=== PATIENT | male | born 1970 | race Caucasian/White ===

== ENCOUNTER 2016-11-30 00:27 | Emergency (ER) | payer SELFPAY ==
[~2016-11-30] VITALS: Ht 175.3 cm; Wt 118.0 kg
[2016-11-30 00:29] VITALS: TEMP 36.3; Ht 175.3 cm; Wt 118.0 kg
[2016-11-30] MEDS ORDERED: IBUPROFEN 600 MG TAB PO STA (00:40)
[2016-11-30] MEDS ORDERED: NAPR250T2 PO (01:00)
[2016-11-30] MEDS ORDERED: PRLSR20 PO (01:01)
[2016-11-30 01:07] VITALS: BP 170/91; PULSE 83; O2SAT 96
--- NOTE | 2016-11-30 03:06 | EMERGENCY ROOM VISIT NOTE ---
ED Visit Note First contact with patient: 00:32 CHIEF COMPLAINT: knee pain HISTORY OF PRESENT ILLNESS: This 46 yo patient presents to the emergency department after sustaining an injury to the right knee when he stepped down off the bus who works for the [employer] and is a work-related injury. The patient denies any other injuries besides their knee. The patient denies swelling or bruising. There is pain medial aspect. They rate the pain as throbbing and 5/10. The patient states they are able to walk on it. No numbness or tingling. No previous injuries to this knee. No ankle, foot or hip pain. REVIEW OF SYSTEMS: A 6 system review of systems was completed with positives and pertinent negatives listed in the HPI. ALLERGIES: none MEDICATIONS: none PMH: none SOCIAL HISTORY: no drug use PHYSICAL EXAM: Vital Signs: Reviewed Nurse's notes, vital signs hypertensive. GENERAL: pleasant male, no acute distress, but appears in pain, well-developed , well-nourished. MENTAL STATUS: Alert, oriented to person place and time, and cooperative. MUSCULOSKELETAL: The right knee is not swollen. There is no ecchymosis. There is no joint effusion present. The patient is tender medial aspect. There is no joint line tenderness. The patella not subluxate. Range of motion is intact but painful. Strength of the quads and hamstrings is 5/5. Thien's is negative. Ash's and Anterior Drawer tests are negative. There is no laxity with varus and valgus stressing. The foot and toes are warm and well-perfused. Dorsalis pedis pulse 2+. Sensation to pain and light touch is intact. Capillary refill less than 2 seconds. EMERGENCY DEPARTMENT COURSE: I examined the patient. X-rays of the right knee were reviewed by myself and attending no fracture . The patient was advised to use his knee immobilizer that he has at home from prior knee injury and follow- up with Worker's Compensation in the next few days. The patient was instructed on the use of crutches. He was advised to return to the ER immediately for severe pain, numbness, tingling, worsening signs or symptoms or as needed. The patient was discharged home in good condition. DIAGNOSIS: Right knee injury, MCL sprain, work-related DISCHARGE INSTRUCTIONS: as below Current/Historical Medications Scheduled Omeprazole (Prilosec), 20 MG PO DAILY Scheduled PRN Naproxen (Naprosyn), Unknown Dose PO DIRECTED PRN for inflammation Allergies Coded Allergies: No Known Allergies (Unverified , 11/30/16) Vital Signs Date Time Temp Pulse Resp B/P Pulse Ox O2 Delivery O2 Flow Rate FiO2 11/30/16 01:07 83 16 170/91 96 Room Air 11/30/16 00:29 36.3 83 18 188/97 97 Room Air Medications Administered Medications (Trade) Dose Ordered Sig/Shruthi Route Start Time Stop Time Status Last Admin Dose Admin Ibuprofen (Motrin Tab) 600 mg NOW STAT PO 11/30/16 00:40 11/30/16 00:41 DC 11/30/16 00:47 600 MG Departure Information Impression Primary Impression: Right knee sprain Additional Impression: Work related injury Dispostion Home / Self-Care Condition GOOD Forms HOME CARE DOCUMENTATION FORM, Work Instructions, Return To Work: 2 days IMPORTANT VISIT INFORMATION Patient Instructions [facility], ED Sprain Knee Additional Instructions Ibuprofen(Motrin, Advil) may be used for fever or pain. Use 600mg every six hours as needed. Take with food. Avoid using more than 2400mg in a 24 hour period. Do not use 2400mg per day for more than three consecutive days without physician direction. Prolonged inappropriate use can lead to stomach upset or ulcers. This medication can be taken if you need to drive, work, or perform activities which may be dangerous when taking narcotic pain medication. (AND/OR) Acetaminophen(Tylenol) may be used for fever or pain. Use 1000mg every six hours as needed. Avoid using more than 3000mg in a 24 hour period. This medication can be taken if you need to drive, work, or perform activities which may be dangerous when taking narcotic pain medication. Ice compresses for 20 minutes at a time four times daily for 2-3 days. Use the crutches as instructed. Rest and elevate your injury. Wear knee immobilizer when up and about. Do not have it so tight that you cannot feel your foot. Continue current medications. Return to the ER immediately for any numbness, tingling, severe pain, extreme swelling in the extremity or as needed. Call your occupational health/Worker's Comp. tomorrow to arrange follow up for your injury. Work Instructions Return To Work: 2 days
--- NOTE | 2016-11-30 06:54 | DIAGNOSTIC IMAGING REPORT ---
RIGHT KNEE 3 VIEWS CLINICAL HISTORY: Right knee pain status post trauma COMPARISON: None. DISCUSSION: There is minor joint space narrowing. There are no fractures. There are no erosive or destructive changes. IMPRESSION: No fractures or dislocations identified. Electronically signed by: Levar Olivarez M.D. 11/30/2016 6:52 AM Dictated Date/Time: 11/30/2016 6:51 AM
== END 2016-11-30 01:20 | disposition home or self-care (01) ==
LOC: C.EDB 00:28 → C.EDA 01:20
DX: S83.411A Sprain of medial collateral ligament of right knee, initial encounter (principal); X58.XXXA Exposure to other specified factors, initial encounter; Y99.0 Civilian activity done for income or pay

== ENCOUNTER 2017-01-04 02:13 | Emergency (ER) | payer SELFPAY ==
[~2017-01-04] VITALS: Ht 175.3 cm; Wt 124.2 kg
[~2017-01-04 02:13] MED LIST: NAPR250T2 PO; PRLSR20 PO
[2017-01-04 02:21] VITALS: TEMP 36.6; Ht 175.3 cm; Wt 124.2 kg
[2017-01-04] MEDS ORDERED: ACET325T96 PO (02:36)
[2017-01-04] MEDS ORDERED: IBUPROFEN 600 MG TAB PO STA (02:43)
[2017-01-04] MEDS ORDERED: OXYCODONE IR HOME PACK PO ONE (02:45)
[2017-01-04 03:24] VITALS: BP 146/92; PULSE 80; O2SAT 97
--- NOTE | 2017-01-04 06:19 | EMERGENCY ROOM VISIT NOTE ---
History Report prepared by Berthaibgeo: Melissa Gay Under the Supervision of: Dr. Byron Omalley M.D. First contact with patient: 02:30 Chief Complaint: KNEEPAIN Stated Complaint: RIGHT KNEE PAIN FROM PREVIOUS WORK INJURY History of Present Illness The patient is a 46 year old male who presents to the Emergency Room with complaints of worsened right knee pain that began last night. His pain is worse with movement of his right leg. The patient states that he was walking at work and suddenly developed sharp pain in his right knee. He did not fall at that time. He took Tylenol about 8 hours ago. The patient has a history of right knee problems that began this past August. His problems initially started with a fall at work when he slipped and fell directly on his right knee. He had x- rays and an MRI at that time which were unrevealing. He developed right knee pain again this past November but denies a fall at that time. He was seen in the ER and was diagnosed with a knee sprain after an x-ray was unrevealing. Recently , he has noticed improvement in his pain and swelling until he reinjured it last evening. He has followed up with Dr. Rollins for his knee pain. He wears a knee brace. Pt denies LOC, headache, fevers, chills, diaphoresis, visual changes , neck pain, chest pain, breathing difficulties, nausea, vomiting, abdominal pain, back pain, melena, hematochezia, urinary symptoms, numbness, weakness, lymphadenopathy, rash, or other complaints. Source of History: patient Onset: last night Position: knee (right) Timing: worsening Modifying Factors (Worsening): movement Review of Systems See HPI for pertinent positives and negatives. A total of ten systems were reviewed and were otherwise negative. Family History Diabetes mellitus Gallbladder disease Heart disease Hypertension Social History Smoking Status: Current Every Day Smoker Alcohol Use: none Marital Status: Housing Status: lives with significant other Occupation Status: employed Current/Historical Medications Scheduled Omeprazole (Prilosec), 20 MG PO DAILY Scheduled PRN Acetaminophen Tab (Tylenol), 650 MG PO DIRECTED PRN for Pain or Fever Allergies Coded Allergies: No Known Allergies (Unverified , 01/04/17) Physical Exam Vital Signs Date Time Temp Pulse Resp B/P Pulse Ox O2 Delivery O2 Flow Rate FiO2 01/04/17 03:24 80 18 146/92 97 01/04/17 02:21 36.6 86 20 151/95 96 Room Air Physical Exam GENERAL: Awake, alert, well-appearing, in no distress HENT: Normocephalic, atraumatic. Oropharynx unremarkable. EYES: Normal conjunctiva. Sclera non-icteric. NECK: Supple. No nuchal rigidity. FROM. No JVD. RESPIRATORY: Clear to auscultation. CARDIAC: Regular rate, normal rhythm. Extremities warm and well perfused. Pulses equal. ABDOMEN: Soft, non-distended. No tenderness to palpation. No rebound or guarding. No masses. RECTAL: Deferred. MUSCULOSKELETAL: Chest examination reveals no tenderness. The back is symmetrical on inspection without obvious abnormality. There is no CVA tenderness to palpation. No joint edema. LOWER EXTREMITIES: Right leg quadriceps function is intact. Tenderness in the anterior aspect of the right knee inferior to the patella. Range of motion is well preserved. Negative Ash's. No laxity to varus or valgus strain. Some mild joint line tenderness. Minimal amount of anterior swelling . Negative Homans sign. NEURO: Normal sensorium. No sensory or motor deficits noted. SKIN: No rash or jaundice noted. Medical Decision & Procedures ER Provider Diagnostic Interpretation: Right knee x-ray per my interpretation: No fracture or dislocation. Mild joint effusion. Medications Administered Medications (Trade) Dose Ordered Sig/Shruthi Route Start Time Stop Time Status Last Admin Dose Admin Oxycodone HCl (Roxicodone Immediate Rel 5MG Home Pack) 1 homepack UD ONCE PO 01/04/17 02:45 01/04/17 02:46 DC 01/04/17 02:52 1 HOMEPACK Ibuprofen (Motrin Tab) 600 mg NOW STAT PO 01/04/17 02:43 01/04/17 02:45 DC 01/04/17 02:52 600 MG ED Course 0240: The patient was evaluated in room B2. A complete history and physical exam was performed. 0243: Ordered Ibuprofen 600 mg PO, Oxycodone HCl 1 homepack PO. 0320: I reevaluated the patient. Discussed results and discharge instructions: He verbalized understanding and agreement. The patient is ready for discharge. Medical Decision Prior records reviewed and summarized above. Triage Nursing notes reviewed and agree them. The patient's history was concerning for isolated knee pain Differential diagnosis: Etiologies such as sprain, strain, arthritis, fracture, dislocation, neurovascular compromise, and Torres's cyst, ligamentous injury, soft tissue injury, as well as others were entertained. Physical examination: Consistent with an isolated right knee injury. ER treatment provided: The patient needs to drive himself home. He was given oral Motrin. He has a brace. On reassessment the patient felt better. Diagnostics interpreted by me: Imaging studies: Xrays as above. The patient has been dealing with knee issues since last fall. He has followed up with orthopedics after his last Emergency Room visit. I suspect he strained the knee by his history and physical examination. The patient notes moderate to significant pain with attempted ambulation. I asked for him to follow up closely with his orthopedist, Dr. Rollins. The patient was given a work note for today and tomorrow. The patient was also given one home pack of oxycodone to use for breakthrough pain if Tylenol and ibuprofen effective.I gave my usual and customary discussion regarding this issue. By the evaluation outlined above emergent etiologies such as fracture, dislocation, neurovascular compromise, compartment syndrome, infections, DVT as well as others were deemed relatively unlikely. The patient was informed about the findings as listed above. All questions were answered and he was pleased with the treatment. Return instructions were outlined and the patient was discharged in stable condition. Prescription management: Oxy IR Referral: [facility]. The chart was completed utilizing [employer] Speech voice recognition software. Grammatical errors, random word insertions, pronoun errors, and incomplete sentences are an occasional consequence of this system due to software limitations, ambient noise, and hardware issues. Any formal questions or concerns about the content, text, or information contained within the body of this dictation should be directly addressed to the physician for clarification. [place] Drug Monitoring Program Search Results: patient reviewed within database, no issues identified Impression Primary Impression: Right knee pain Scribe Attestation The scribe's documentation has been prepared under my direction and personally reviewed by me in its entirety. I confirm that the note above accurately reflects all work, treatment, procedures, and medical decision making performed by me. Departure Information Dispostion Home / Self-Care Referrals Dorian Avila D.O. (PCP) Patient Instructions [facility] Additional Instructions ORTHOPEDIC INSTRUCTIONS: Oxycodone (OxyIR) 5mg: Take 1 pill every four hours for breakthrough pain. Avoid alcohol, operating machinery or dangerous equipment, working on ladders or roofs, DRIVING, or situations where being under the influence may be dangerous. It is recommended to use an [id number] stool softener such as Colace, 100mg twice daily while taking this medication to avoid constipation. Ibuprofen(Motrin, Advil) may be used for fever or pain. Use 600mg every six hours as needed. Take with food. Avoid using more than 2400mg in a 24 hour period. Do not use 2400mg per day for more than three consecutive days without physician direction. Prolonged inappropriate use can lead to stomach upset or ulcers. (AND/OR) Acetaminophen(Tylenol) may be used for fever or pain. Use 1000mg every six hours as needed. Avoid using more than 4000mg in a 24 hour period. Ice compresses for 20 minutes at a time four times daily for 2-3 days. Use the knee brace as instructed. Rest and elevate your injury. Return to the ER immediately for any numbness, tingling, severe pain, extreme swelling in the extremity or as needed. Call [facility], [phone], later today to arrange follow up for your injury.
--- NOTE | 2017-01-04 06:41 | DIAGNOSTIC IMAGING REPORT ---
RIGHT KNEE 1 OR 2 VIEWS ROUTINE CLINICAL HISTORY: right knee pain Right pain COMPARISON: None. DISCUSSION: The bones and joint spaces appear intact. There is no evidence of fracture, dislocation or bony disease. There is no evidence for soft tissue swelling. IMPRESSION: Negative study. Electronically signed by: Blanco Jimenez M.D. 01/04/2017 6:39 AM Dictated Date/Time: 01/04/2017 6:39 AM
== END 2017-01-04 03:27 | disposition home or self-care (01) ==
LOC: C.EDB 02:16
DX: M25.561 Pain in right knee (principal); W01.0XXD Fall on same level from slipping, tripping and stumbling without subsequent striking against object, subsequent encounter; Y99.0 Civilian activity done for income or pay; Z83.3 Family history of diabetes mellitus; Z82.49 Family history of ischemic heart disease and other diseases of the circulatory system; F17.210 Nicotine dependence, cigarettes, uncomplicated; Z79.899 Other long term (current) drug therapy

== ENCOUNTER → 2017-02-02 | Outpatient (CLI) | payer SELFPAY ==
[~2017-02-02] MED LIST changes: +ACET325T96 PO; +BENZ1CAP90 PO; +CYCL5TAB PO; +NAPR-1169 PO; -NAPR250T2 PO
[2017-02-02 15:26] LABS: BASO % 0.6 %; BASO ABS # 0.07 K/uL (0-0.2); COMPLETE YES; HEMATOCRIT 44.9 % (42-52); IG% 0.5 %; LYMPH % 30.5 %; LYMPH ABS # 3.66 K/uL (1.2-3.4); MEAN CELL VOLUME 88.7 fL (80-100); MONO % 6.9 %; NEUT % 54.5 %; PLATELET COUNT 279 K/uL (130-400); RED BLOOD COUNT 5.06 M/uL (4.7-6.1)
== END | disposition home or self-care (01) ==
LOC: C.LAB 14:43
PROVIDERS: ATTEND Orthopaedic Surgery Sports Medicine
DX: L03.90 Cellulitis, unspecified (principal)

== ENCOUNTER → 2017-03-29 | Outpatient (CLI) | payer BC ==
[2017-03-29 13:50] LABS: DAYS OF ABSTINENCE 6; METHOD OF COLLECTION MASTURBATION; SEMEN COLOR GRAY OR GRAY-WHITE (GRY/GRYWHTE); SEMEN TIME OF COLLECTION 1313; SEMEN VOLUME 1.5 ML (>1.5); SPERM VIABILITY STAIN NOT INDICATED % (>58%); TYPE OF SPECIMEN CONTAINER STERILE CUP
== END | disposition home or self-care (01) ==
LOC: C.LABSPEC 13:33
PROVIDERS: ATTEND Specialist
DX: Z31.41 Encounter for fertility testing (principal)

== ENCOUNTER → 2017-04-06 | Outpatient (CLI) | payer BC | END | disposition home or self-care (01) | LOC: C.LAB 12:56 | PROVIDERS: ATTEND Obstetrics & Gynecology Reproductive Endocrinology | DX: Z11.3 Encounter for screening for infections with a predominantly sexual mode of transmission (principal); Z11.4 Encounter for screening for human immunodeficiency virus [HIV]; Z11.9 Encounter for screening for infectious and parasitic diseases, unspecified ==

== ENCOUNTER → 2017-04-30 | Outpatient (CLI) | payer BC ==
[2017-05-14 17:31] LABS: TESTOSTERONE,TOTAL 177 ng/dL (250-1100)
== END | disposition home or self-care (01) ==
LOC: C.LAB 13:08
PROVIDERS: ATTEND Obstetrics & Gynecology Reproductive Endocrinology
DX: Z31.41 Encounter for fertility testing (principal); N46.01 Organic azoospermia

== ENCOUNTER → 2017-07-24 | Outpatient (CLI) | payer BC ==
[2017-07-24 09:58] LABS: TESTOSTERONE,TOTAL 334.4 ng/dl
== END | disposition home or self-care (01) ==
LOC: C.LAB 06:56
PROVIDERS: ATTEND Urology
DX: E29.1 Testicular hypofunction (principal)

== ENCOUNTER 2017-07-30 06:53 | Emergency (ER) | payer BC ==
[~2017-07-30] VITALS: Ht 175.3 cm; Wt 123.5 kg
[~2017-07-30 06:53] MED LIST changes: -BENZ1CAP90 PO; -CYCL5TAB PO; -NAPR-1169 PO
[2017-07-30 06:54] VITALS: TEMP 36.7; Ht 175.3 cm; Wt 123.5 kg
--- NOTE | 2017-07-30 07:29 | EMERGENCY ROOM VISIT NOTE ---
History First contact with patient: 07:03 Chief Complaint: BACK PAIN Stated Complaint: BACK PAIN,ABDOMINAL PAIN History of Present Illness The patient is a 46 year old male who presents to the Emergency Room with complaints of mid back pain since this morning. The patient states that over the past 2 weeks, he has been experiencing a sinus infection with a significant amount of coughing. He states last , he began experiencing chest pain. The patient states the chest pain has eased up significantly, however the back pain seems to be worsening. The patient states the pain radiates below his ribs and the back, around to his abdomen. He states he is also feeling a little nauseated. Patient states the pain waxes and wanes, however worsen significantly at approximately 8 AM today. The patient states he did contact his PCP approximately one week ago, who called in a Z-Juan Francisco. The patient states he did not feel a significant improvement in his symptoms with this medication. Patient states he is experiencing a slight amount of dyspnea, and congestion, however states that those symptoms are improving. He states sitting still makes the pain, dyspnea, and congestion worse, but moving around and walking seems to help with the pain and dyspnea. The patient states he does feel a sharp pinch in his back every once in a while. He states he did take Tylenol yesterday and today, with minimal to no relief in his pain. The patient denies any vomiting, chest pressure, coughing up sputum, fever, chills, earache, or other associated symptoms. He has been taking no OTC cold medication. Review of Systems A complete 10 point review of systems was reviewed with the patient with pertinent positives and negatives as per history of present illness. All else were negative. Past Medical/Surgical History GERD Family History Diabetes mellitus Gallbladder disease Heart disease Hypertension Social History Smoking Status: Current Every Day Smoker Alcohol Use: occasionally Drug Use: none Marital Status: Housing Status: lives with significant other Occupation Status: employed Current/Historical Medications Scheduled Benzonatate (Tessalon Perles), 200 MG PO TID Naproxen (Naprosyn), 500 MG PO BID Omeprazole (Prilosec), 20 MG PO DAILY Scheduled PRN Acetaminophen Tab (Tylenol), 650 MG PO Q4 PRN for Pain or Fever Cyclobenzaprine Hcl (Flexeril), 5-10 MG PO TID PRN for Muscle Spasms Allergies Nasonex, cephalosporins, NKECHI inhibitors Physical Exam Vital Signs Date Time Temp Pulse Resp B/P (MAP) Pulse Ox O2 Delivery O2 Flow Rate FiO2 07/30/17 08:23 79 20 156/96 95 07/30/17 08:18 79 20 156/96 95 Room Air 07/30/17 06:54 36.7 87 18 185/100 97 Room Air Physical Exam VITALS: Vitals are noted on the nurse's note and reviewed by myself. Vital signs stable. GENERAL: This is a 46-year-old white male, in no acute distress, nondiaphoretic , well-developed well-nourished. SKIN: The skin was without rashes, erythema, edema, or bruising. There is no tenting of the skin. Capillary reflex less than 2 seconds. HEAD: Normocephalic atraumatic. EARS: External auditory canals clear, tympanic membranes pearly guido without erythema or effusion bilaterally. EYES: Pupils equal round and reactive to light and accommodation. Conjunctivae without injection, sclerae without icterus. Extraocular movements intact. NOSE: Patent, turbinates without inflammation or discharge. No sinus tenderness. MOUTH: Mucous membranes moist. Tonsils are not enlarged. Pharynx without erythema or exudate. Uvula midline. Airway patent. Tongue does not deviate. NECK: Supple without nuchal rigidity. No lymphadenopathy. No thyromegaly. Cervical spine is nontender. No JVD. HEART: Regular rate and rhythm without murmurs gallops or rubs. LUNGS: Clear to auscultation bilaterally without wheezes, rales or rhonchi. No dullness to percussion. No retractions or accessory muscle use. ABDOMEN: Positive bowel sounds x 4. Normal tympanic percussion. Soft, nontender, without masses or organomegaly. Dahl sign negative. No guarding or rebound tenderness. MUSCULOSKELETAL: No muscle atrophy, erythema, or edema noted. Full range of motion without joint tenderness in all extremities. No tenderness to palpation with the exception of mild tenderness on palpation of the thoracic paraspinous muscles associated with muscle spasms. Negative straight leg raising test bilaterally. Normal gait. Strength 5/5 throughout. NEURO: Patient was alert and oriented to person place and time. Normal sensation to light and sharp touch. No focal neurological deficits. Medical Decision & Procedures ER Provider Diagnostic Interpretation: LABS: CBC did show mild leukocytosis of 12,000. Without anemia or thrombocytopenia. CMP showed normal renal and hepatic function. All joints were normal. Blood glucose was mildly elevated at 114. Troponin and CK-MB were normal. CXR: FINDINGS: Prior open reduction internal fixation left clavicle. Subtle interstitial prominence. No focal infiltrate. Slight peribronchial prominence. Diaphragms are smooth. Costophrenic angles are sharp. IMPRESSION: Mild nonspecific interstitial prominence. No focal infiltrate. Laboratory Results 07/30/17 07:28 Red Blood Count 4.82, Mean Corpuscular Volume 89.8, Mean Corpuscular Hemoglobin 31.5, Mean Corpuscular Hemoglobin Concent 35.1, Mean Platelet Volume 10.2, Neutrophils (%) (Auto) 56.7, Lymphocytes (%) (Auto) 31.8, Monocytes (%) (Auto) 5.3, Eosinophils (%) (Auto) 4.6, Basophils (%) (Auto) 0.6, Neutrophils # (Auto) 7.04, Lymphocytes # (Auto) 3.94, Monocytes # (Auto) 0.66, Eosinophils # (Auto) 0.57, Basophils # (Auto) 0.07 07/30/17 07:28 Test 07/30/17 07:18 07/30/17 07:28 Creatine Kinase MB Ratio (0-3.0) White Blood Count 12.40 K/uL (4.8-10.8) Red Blood Count 4.82 M/uL (4.7-6.1) Hemoglobin 15.2 g/dL (14.0-18.0) Hematocrit 43.3 % (42-52) Mean Corpuscular Volume 89.8 fL (80-100) Mean Corpuscular Hemoglobin 31.5 pg (25-34) Mean Corpuscular Hemoglobin Concent 35.1 g/dl (32-36) Platelet Count 237 K/uL (130-400) Mean Platelet Volume 10.2 fL (7.4-10.4) Neutrophils (%) (Auto) 56.7 % Lymphocytes (%) (Auto) 31.8 % Monocytes (%) (Auto) 5.3 % Eosinophils (%) (Auto) 4.6 % Basophils (%) (Auto) 0.6 % Neutrophils # (Auto) 7.04 K/uL (1.4-6.5) Lymphocytes # (Auto) 3.94 K/uL (1.2-3.4) Monocytes # (Auto) 0.66 K/uL (0.11-0.59) Eosinophils # (Auto) 0.57 K/uL (0-0.5) Basophils # (Auto) 0.07 K/uL (0-0.2) RDW Standard Deviation 43.7 fL (36.4-46.3) RDW Coefficient of Variation 13.3 % (11.5-14.5) Immature Granulocyte % (Auto) 1.0 % Immature Granulocyte # (Auto) 0.12 K/uL (0.00-0.02) Anion Gap 7.0 mmol/L (3-11) Est Creatinine Clear Calc Drug Dose 122.2 ml/min Estimated GFR () 107.9 Estimated GFR (Non- 93.1 BUN/Creatinine Ratio 11.7 (10-20) Calcium Level 8.9 mg/dl (8.5-10.1) Total Bilirubin 0.2 mg/dl (0.2-1) Aspartate Amino Transf (AST/SGOT) 18 U/L (15-37) Alanine Aminotransferase (ALT/SGPT) 34 U/L (12-78) Alkaline Phosphatase 69 U/L (45-117) Creatine Kinase MB 2.9 ng/ml (0.5-3.6) Troponin I < 0.015 ng/ml (0-0.045) Total Protein 7.2 gm/dl (6.4-8.2) Albumin 3.8 gm/dl (3.4-5.0) Globulin 3.4 gm/dl (2.5-4.0) Albumin/Globulin Ratio 1.1 (0.9-2) Medications Administered Medications (Trade) Dose Ordered Sig/Shruthi Route Start Time Stop Time Status Last Admin Dose Admin Ketorolac Tromethamine (Toradol Inj) 30 mg NOW STAT IV 07/30/17 08:07 07/30/17 08:08 DC 07/30/17 08:18 30 MG ECG Indication: abdominal pain, back/shoulder pain, SOB/dyspnea Rate (beats per minute): 79 Rhythm: normal sinus Findings: no acute ischemic change, no ectopy Comparison ECG Date: no prior available Medical Decision The patient was seen and evaluated as above. He presented to the emergency department complaining of upper respiratory infection symptoms which are improving, but mainly complained of back pain. I did feel that some the patient 's symptoms and history, a cardiac workup was warranted, however these labs and the EKG were normal. The patient states he has been coughing a significant amount, then his back pain began. With negative cardiac workup, mild leukocytosis, and the patient's symptoms, I suspect that his back pain is muscular in nature, related to coughing from his recent illness. The patient had been treated with antibiotics by his PCP, and he states his URI symptoms are improving. She was given a dose of Toradol in the emergency department, which he did say helped with his pain. The patient was given discharge instructions at bedside, and was discharged home in good condition. Differential diagnosis includes: Upper respiratory infection, acute sinusitis, pneumonia, bronchitis, muscular back pain, costochondritis, contusion, fracture , sprain, malignancy, and others. Medication Reconcilliation Current Medication List: was personally reviewed by me Blood Pressure Screening Patient's blood pressure: Elevated blood pressure Blood pressure disposition: Elevated BP felt to be situational, Referred to PCP Impression Primary Impression: Strain of thoracic region Additional Impressions: Upper respiratory infection Muscle spasm of back Departure Information Dispostion Home / Self-Care Condition GOOD Prescriptions Benzonatate (Tessalon Perles) 200 Mg Cap 200 MG PO TID for 10 Days, #30 CAP Prov: Eunice Hanks PA-C 07/30/17 Naproxen (Naprosyn) 500 Mg Tab 500 MG PO BID, #60 TAB Prov: Eunice Hanks PA-C 07/30/17 Cyclobenzaprine Hcl (FLEXERIL) 5 Mg Tab 5-10 MG PO TID Y for Muscle Spasms, #18 TAB PRN Prov: Eunice Hanks PA-C 07/30/17 Referrals Dorian Avila D.O. (PCP) Patient Instructions ED Spasm Back No Trauma, ED Upper Resp Infec No Abx Tx, My [facility] Additional Instructions You have been treated in the Emergency Department for Back Pain. I do also suspect an Upper Respiratory Infection, and do recommend OTC remedies for this, as you have already been on antibiotics without improvement in your symptoms. You may take benzonatate as prescribed for coughing. You have been prescribed Naproxen to be used for pain control and to help with inflammation. This is an NSAID and should not be used with any other NSAIDs, such as ibuprofen, naproxen, Aleve, Motrin, Advil. You should take this medication regularly for the next 3-5 days to help with inflammation and pain until you can follow-up with your PCP. You have been prescribed Flexeril (cyclobenzaprine) 1-2 tabs orally, three times per day. Do NOT exceed 30 mg (6 tabs) per day. Take your first dose at bedtime as it can make you drowsy. Always take all medications as prescribed. For pain control, you can use the following [id number] medicines (if >12 yo): Ibuprofen(Motrin, Advil) may be used for fever or pain. Use 600mg every six hours as needed. Take with food. Avoid using more than 2400mg in a 24 hour period. Do not use 2400mg per day for more than three consecutive days without physician direction. Prolonged inappropriate use can lead to stomach upset or ulcers. (Do not take while taking Naproxen). (AND/OR) Acetaminophen(Tylenol) may be used for fever or pain. Use 1000mg every six to eight hours as needed. Avoid using more than 3000mg in a 24 hour period. You may take Tylenol while taking Naproxen. If this is an acute injury, ice can be applied to the area of pain for the first 3 days to help decrease pain and inflammation. After the first 3 days, a heating pad can be used over the area for continued soothing relief. You should schedule a follow-up appointment in 2-3 days with your Primary Care Provider for further evaluation and treatment of your back pain. Return to the Emergency Department if your current symptoms worsen despite treatment course outlined above, or if you develop any of the following symptoms : intractable pain despite aforementioned treatment course, loss of control of your bowel or bladder, numbness or tingling in your groin, or development of a fever. Work Instructions Return To Work: 1 day Problem Qualifiers Primary Impression: Strain of thoracic region Encounter type: initial encounter Qualified Codes: S29.019A - Strain of muscle and tendon of unspecified wall of thorax, initial encounter Additional Impressions: Upper respiratory infection URI type: unspecified viral URI Qualified Codes: J06.9 - Acute upper respiratory infection, unspecified; B97.89 - Other viral agents as the cause of diseases classified elsewhere
[2017-07-30 07:43] LABS: BASO % 0.6 %; BASO ABS # 0.07 K/uL (0-0.2); COMPLETE YES; EOS % 4.6 %; HEMATOCRIT 43.3 % (42-52); LYMPH % 31.8 %; LYMPH ABS # 3.94 K/uL (1.2-3.4); MEAN CELL VOLUME 89.8 fL (80-100); MEAN CORPUSCULAR HEMOGLOBIN 31.5 pg (25-34); MEAN CORPUSCULAR HGB CONC 35.1 g/dl (32-36); MEAN PLATELET VOLUME 10.2 fL (7.4-10.4); MONO % 5.3 %; NEUT % 56.7 %; PLATELET COUNT 237 K/uL (130-400); RED BLOOD COUNT 4.82 M/uL (4.7-6.1)
[2017-07-30 07:59] LABS: BLOOD UREA NITROGEN 11 mg/dl (7-18); CREATININE 0.96 mg/dl (0.60-1.40); GLUCOSE 114 mg/dl (70-99)
[2017-07-30 08:00] LABS: ALT/SGPT 34 U/L (12-78); BUN/CREATININE RATIO 11.7 (10-20); CALCIUM 8.9 mg/dl (8.5-10.1); CARBON DIOXIDE 27 mmol/L (21-32); CHLORIDE 107 mmol/L (98-107); SODIUM 141 mmol/L (136-145)
[2017-07-30 08:04] LABS: ALB/GLOB RATIO 1.1 (0.9-2); ALKALINE PHOSPHATASE 69 U/L (45-117); AST/SGOT 18 U/L (15-37)
[2017-07-30] MEDS ORDERED: KETOROLAC TROMETHAMINE 30 MG/ML VIAL IV STA (08:07)
--- NOTE | 2017-07-30 08:07 | DIAGNOSTIC IMAGING REPORT ---
CHEST 2 VIEWS ROUTINE CLINICAL HISTORY: dyspnea dyspnea COMPARISON STUDY: No previous studies for comparison. FINDINGS: Prior open reduction internal fixation left clavicle. Subtle interstitial prominence. No focal infiltrate. Slight peribronchial prominence. Diaphragms are smooth. Costophrenic angles are sharp. IMPRESSION: Mild nonspecific interstitial prominence. No focal infiltrate. The above report was generated using voice recognition software. It may contain grammatical, syntax or spelling errors. Electronically signed by: Blanco Jimenez M.D. 07/30/2017 8:06 AM Dictated Date/Time: 07/30/2017 8:05 AM
[2017-07-30] MEDS ORDERED: NAPR-1169 PO (08:15)
[2017-07-30] MEDS ORDERED: CYCL5TAB PO (08:15)
[2017-07-30] MEDS ORDERED: BENZ1CAP90 PO (08:19)
[2017-07-30 08:23] VITALS: BP 156/96; PULSE 79; O2SAT 95
== END 2017-07-30 08:24 | disposition home or self-care (01) ==
LOC: C.EDB 06:54 → C.EDA 08:24
DX: S29.012A Strain of muscle and tendon of back wall of thorax, initial encounter (principal); X58.XXXA Exposure to other specified factors, initial encounter; J06.9 Acute upper respiratory infection, unspecified; K21.9 Gastro-esophageal reflux disease without esophagitis; Z83.3 Family history of diabetes mellitus; Z82.49 Family history of ischemic heart disease and other diseases of the circulatory system; F17.210 Nicotine dependence, cigarettes, uncomplicated; Z79.899 Other long term (current) drug therapy

== ENCOUNTER → 2017-09-21 | Outpatient (CLI) | payer BC ==
[~2017-09-21] MED LIST changes: +NAPR-1169 PO
--- NOTE | 2017-09-21 07:29 | DIAGNOSTIC IMAGING REPORT ---
TWO VIEW CHEST CLINICAL HISTORY: Bronchitis. FINDINGS: PA and lateral chest radiographs are compared to study dated 07/30/2017. The heart is top normal for projection. The mediastinal contour is within normal limits. There is minimal elevation of left hemidiaphragm with associated atelectasis. The lungs and pleural spaces are otherwise clear. There is no pneumothorax. There is chronic posttraumatic deformity and postoperative change identified in the left clavicle. Degenerative change is noted in the thoracic spine. IMPRESSION: No active disease in the chest. Electronically signed by: Kenneth Padilla M.D. 09/21/2017 7:27 AM Dictated Date/Time: 09/21/2017 7:26 AM
== END | disposition home or self-care (01) ==
LOC: C.RAD 06:55
PROVIDERS: ATTEND Family Medicine
DX: J40 Bronchitis, not specified as acute or chronic (principal)

== ENCOUNTER 2018-01-30 16:36 | Observation (INO) | payer BC, OTHER ==
[~2018-01-30] VITALS: Ht 175.3 cm; Wt 121.5 kg
[~2018-01-30 16:36] MED LIST changes: +ACET-1693 PO; -ACET325T96 PO; +ARM1 PO; +CLOM50TA6 PO; +OXYC-57 PO
[2018-01-30] MEDS ORDERED: MoRPHine SULFATE 10 MG/ML CARP/VIAL IV STA (17:01)
[2018-01-30] MEDS ORDERED: SODIUM CHLORIDE 0.9% 1000ML 1,000 ML IV STA ×2 (17:01)
[2018-01-30] MEDS ORDERED: ONDANSETRON INJ 2 MG/ML 2 ML VIAL IV STA (17:01)
[2018-01-30] MEDS ORDERED: OPTIRAY 320 IV PRN (17:15)
[2018-01-30 17:25] LABS: BASO % 0.4 %; BASO ABS # 0.04 K/uL (0-0.2); EOS % 4.5 %; EOS ABS # 0.46 K/uL (0-0.5); HEMATOCRIT 46.3 % (42-52); HEMOGLOBIN 16.6 g/dL (14.0-18.0); IG# 0.04 K/uL (0.00-0.02); LYMPH % 29.9 %; LYMPH ABS # 3.03 K/uL (1.2-3.4); MEAN CELL VOLUME 88.2 fL (80-100); MEAN CORPUSCULAR HEMOGLOBIN 31.6 pg (25-34); MEAN CORPUSCULAR HGB CONC 35.9 g/dl (32-36); MEAN PLATELET VOLUME 10.1 fL (7.4-10.4); MONO % 5.9 %; NEUT % 58.9 %; NEUT ABS # 5.97 K/uL (1.4-6.5); PLATELET COUNT 215 K/uL (130-400); RED CELL DISTRIBUTION WIDTH CV 13.7 % (11.5-14.5); RED CELL DISTRIBUTION WIDTH SD 44.5 fL (36.4-46.3); WHITE BLOOD COUNT 10.14 K/uL (4.8-10.8)
[2018-01-30 17:43] LABS: ALBUMIN 3.7 gm/dl (3.4-5.0); CALCIUM 8.8 mg/dl (8.5-10.1); CREATININE 0.94 mg/dl (0.60-1.40); POTASSIUM 3.8 mmol/L (3.5-5.1)
--- NOTE | 2018-01-30 18:16 | DIAGNOSTIC IMAGING REPORT ---
ABDOMEN 2VIEW W/PA CHEST RTN HISTORY: 47 years-old Male EVAL LOWER ABD PAIN acute lower abdominal pain COMPARISON: Chest radiograph 09/21/2017 TECHNIQUE: PA view of the chest with upright and supine views of the abdomen FINDINGS: Cardiomediastinal and hilar silhouettes are within normal limits. There is no pneumothorax, pleural effusion, focal airspace consolidation or overt pulmonary edema. Minimal subsegmental left basilar atelectasis. Round metallic radiodensity overlying the medial right lung base may be external to the patient. ORIF changes of the left clavicle. Cholecystectomy clips noted. No pneumoperitoneum on the upright projection. No pneumatosis. There are a few likely physiologic small bowel air-fluid levels of the central abdomen. No bowel obstruction. No urolith identified. Probable phleboliths of the pelvis. No fracture. IMPRESSION: 1. No acute process of the chest. 2. Nonobstructive bowel gas pattern without pneumoperitoneum. The above report was generated using voice recognition software. It may contain grammatical, syntax or spelling errors. Electronically signed by: Lasha Jennings M.D. 01/30/2018 6:14 PM Dictated Date/Time: 01/30/2018 6:12 PM
--- NOTE | 2018-01-30 18:28 | DIAGNOSTIC IMAGING REPORT ---
ABDOMEN AND PELVIS CT WITH IV CONTRAST CT DOSE: 1384.28 mGy.cm HISTORY: Right abdominal pain. TECHNIQUE: Multiaxial CT images of the abdomen and pelvis were performed following the use of intravenous contrast. A dose lowering technique was utilized adhering to the principles of ALARA. COMPARISON STUDY: Chest and abdominal series 01/30/2018. FINDINGS: A 5 mm subpleural nodule at the base of the left lower lobe on image 5. The right lung is clear. No pneumoperitoneum. No pneumatosis. No fractures within the visualized osseous structures. Fat-containing umbilical hernia. The hernia sac measures 5 cm. There is mild surrounding fat stranding. This could represent strangulation of the herniated fat. There is no bowel identified within the hernia sac. A 2 cm diverticulum at the second portion of the duodenum. Hepatic steatosis with focal fatty sparing at the jag hepatis. Cholecystectomy. The pancreas, spleen, and adrenal glands are unremarkable. No retroperitoneal lymphadenopathy. Mild calcified plaque within the normal caliber abdominal aorta. A 7 mm exophytic hypodense lesion within the left kidney. This is too small to characterize. Normal right kidney. No renal stones are hydronephrosis. Normal bladder. No bowel wall thickening or obstruction. Normal appendix. IMPRESSION: 1. Fat-containing umbilical hernia. There is mild surrounding fat stranding at the hernia sac. Therefore, this could represent strangulation of the herniated fat. No bowel identified within the hernia sac. No bowel wall thickening or obstruction. 2. Normal appendix. 3. No renal or ureteral stones. No hydronephrosis. 4. Hepatic steatosis. 5. A 5 mm subpleural nodule at the base of the left lower lobe. Please refer to the chart below for recommended follow-up. Please refer to below summary of Fleischner criteria recommendations for follow-up of incidental CT nodules (Marti Matthews, Guidelines for management of small pulmonary nodules detected on CT scans: A statement from the Fleischner Society, Radiology 237: [phone].) SOLID NODULES Solitary nodule size: <6 mm * Low risk patients: no follow-up needed * high risk patients: optional CT at 12 months Solitary nodule size: 6-8 mm * Low risk patients: follow-up at 6-12 months, then consider further follow-up at 18-24 months * high risk patients: initial follow-up CT at 6-12 months and then at 18-24 months if no change Solitary nodule size: >8 mm * either low or high risk patients - consider follow-up CT at 3 months, and/or CT-PET, and/or biopsy Multiple nodules size: <6 mm * Low risk patients: no routine follow-up * high risk patients: optional CT at 12 months Multiple nodules size: 6-8 mm * Low risk patients: follow-up at 3-6 months, then consider further follow-up at 18-24 months * high risk patients: follow-up at 3-6 months, then at 18-24 months if no change Multiple nodules size: >8 mm * Low risk patients: follow-up at 3-6 months, then consider further follow-up at 18-24 months * high risk patients: follow-up at 3-6 months, then at 18-24 months if no change Note: newly detected indeterminate nodule in persons 35 years of age or older. * Low risk patients: minimal or absent history of smoking and/or other known risk factors * high risk patients: history of smoking or of other known risk factors (e.g. first degree relative with lung cancer, or exposure to asbestos, radon, uranium) * if a nodule up to 8 mm is partly solid or is ground glass further follow-up is required after 24 months to exclude possible slow growing adenocarcinoma (CHARLES) SUBSOLID NODULES Solitary pure ground-glass nodule * nodule size <6 mm - no CT follow-up required * nodule size >=6 mm - follow-up CT at 6-12 months, then every 2 years until 5 years Solitary part-solid nodule * nodule size <6 mm - no CT follow-up required * nodule size >=6 mm - follow-up CT at 3-6 months. If unchanged, and solid component remains <6 mm, then annual follow-up for 5 years Multiple subsolid nodules * nodule size <6 mm - follow-up CT at 3-6 months, consider further follow-up at 2 and 4 years if stable * nodule size >=6 mm - follow-up CT at 3-6 months, subsequent management based on the most suspicious nodule(s) Electronically signed by: Agustin Mcpherson M.D. 01/30/2018 6:27 PM Dictated Date/Time: 01/30/2018 6:16 PM
--- NOTE | 2018-01-30 18:58 | EMERGENCY ROOM VISIT NOTE ---
ED Visit Note First contact with patient: 16:41 Patient was seen by our PA/SHOE PACKER. I was involved in the patient's care and did evaluate the patient myself. I was involved in the care throughout the ER stay. Patient does have an incarcerated umbilical hernia. No bowel within the hernia. The area is tender on exam and there is some surrounding erythema. Surgery will be consulted.
--- NOTE | 2018-01-30 19:02 | EMERGENCY ROOM VISIT NOTE ---
History First contact with patient: 16:41 Chief Complaint: ABDOMINAL PAIN Stated Complaint: PAIN IN [place] History of Present Illness Patient is a 47-year-old male who presents the emergency department accompanied by his for evaluation of lower abdominal pain 4 days. He is status post cholecystectomy. He reports that he has intermittent abdominal pain for some time, but states it only lasted her about a day or so. He has had an umbilical hernia since his cholecystectomy, states that the umbilical hernia has been getting larger and more painful over the last several months. He has not had it evaluated. Since Sunday, 4 days ago, he has noted progressively worsening lower abdominal pain, wrapping around to the low back bilaterally and radiating into the groin. He occasionally gets a sharp pain in his back otherwise he describes the pain as dull and nagging. He reports associated nausea and feels distended. His states that his abdomen feels hard. He has not vomited. He has noticed loose stools over the last couple of days, no melena or hematochezia. He also notes that he has discomfort and pressure when starting his stream, but denies dysuria or hematuria. He has had chills with pain, but no fevers. He has never had a colonoscopy. He saw a urologist as part of an infertility workup last summer, and was placed on testosterone supplementation. He did not have any imaging performed at that time. He presently rates his discomfort a 7/10. He has not taken any medication for his pain. Review of Systems Review of systems as per HPI. All other systems reviewed were negative. 10 systems reviewed. Past Medical/Surgical History Medical Problems: (1) Bilateral wrist pain (2) Fall (3) GERD (gastroesophageal reflux disease) (4) Hypertension (5) Infertility (6) Muscle spasm of back (7) Right knee pain (8) Right knee sprain (9) Strain of thoracic region (10) Umbilical hernia, incarcerated (11) Upper respiratory infection (12) Work related injury Surgical Problems: (1) Clavicle fracture (2) Hx laparoscopic cholecystectomy Electronic medical records are reviewed and summarized as above/below. See Problem List. Family History Diabetes mellitus Gallbladder disease Heart disease Hypertension Social History Smoking Status: Current Every Day Smoker Alcohol Use: occasionally Drug Use: none Marital Status: Housing Status: lives with significant other Occupation Status: employed Current/Historical Medications Scheduled Anastrozole (Anastrozole), 1 MG PO DAILY Omeprazole (Prilosec), 20 MG PO DAILY Scheduled PRN Acetaminophen Tab (Tylenol), 650 MG PO Q4 PRN for Pain or Fever Physical Exam Vital Signs Date Time Temp Pulse Resp B/P (MAP) Pulse Ox O2 Delivery O2 Flow Rate FiO2 01/30/18 20:18 95 Room Air 01/30/18 20:06 83 20 157/98 95 Room Air 01/30/18 19:08 82 18 146/94 96 Room Air 01/30/18 18:19 82 20 164/97 94 Room Air 01/30/18 17:20 82 18 178/109 96 Room Air 01/30/18 16:37 36.7 95 18 182/87 96 Room Air Physical Exam CONSTITUTIONAL: Patient is an obese 47-year-old white male who is awake and alert and in mild distress due to his stated complaint. EYES: Pupils equal, round, reactive to light and accommodation. EOMs intact without nystagmus. Sclera are anicteric. ENT: Tympanic membranes intact, with normal landmarks. External canals are clear. Oral and nasopharynx are clear. Mucous membranes are moist, no lesions , tongue and gums appear normal. CARDIOVASCULAR: Regular rate and rhythm, with normal S1 and S2, no murmur or gallop or rub is heard. No carotid bruits auscultated. No JVD. Peripheral pulses easily palpable. RESPIRATORY: Breath sounds equal and clear to auscultation without wheezes, rales, or rhonchi heard. Full and equal chest expansion without accessory muscle use or retractions. ABDOMEN: Bowel sounds are present, slightly hypoactive. He has an obvious umbilical hernia that is tender to palpation, and not overtly reducible. Abdomen is obese, nondistended to percussion throughout, but moderately tender in the bilateral lower quadrants, no guarding, rebound or rigidity. INTEGUMENTARY: No lesions or rash, normal skin turgor. LYMPH: No lymphadenopathy. Medical Decision & Procedures ER Provider Diagnostic Interpretation: ABDOMEN 2VIEW W/PA CHEST RTN HISTORY: 47 years-old Male EVAL LOWER ABD PAIN acute lower abdominal pain COMPARISON: Chest radiograph 09/21/2017 TECHNIQUE: PA view of the chest with upright and supine views of the abdomen FINDINGS: Cardiomediastinal and hilar silhouettes are within normal limits. There is no pneumothorax, pleural effusion, focal airspace consolidation or overt pulmonary edema. Minimal subsegmental left basilar atelectasis. Round metallic radiodensity overlying the medial right lung base may be external to the patient. ORIF changes of the left clavicle. Cholecystectomy clips noted. No pneumoperitoneum on the upright projection. No pneumatosis. There are a few likely physiologic small bowel air-fluid levels of the central abdomen. No bowel obstruction. No urolith identified. Probable phleboliths of the pelvis. No fracture. IMPRESSION: 1. No acute process of the chest. 2. Nonobstructive bowel gas pattern without pneumoperitoneum. ABDOMEN AND PELVIS CT WITH IV CONTRAST CT DOSE: 1384.28 mGy.cm HISTORY: Right abdominal pain. TECHNIQUE: Multiaxial CT images of the abdomen and pelvis were performed following the use of intravenous contrast. A dose lowering technique was utilized adhering to the principles of ALARA. COMPARISON STUDY: Chest and abdominal series 01/30/2018. FINDINGS: A 5 mm subpleural nodule at the base of the left lower lobe on image 5. The right lung is clear. No pneumoperitoneum. No pneumatosis. No fractures within the visualized osseous structures. Fat-containing umbilical hernia. The hernia sac measures 5 cm. There is mild surrounding fat stranding. This could represent strangulation of the herniated fat. There is no bowel identified within the hernia sac. A 2 cm diverticulum at the second portion of the duodenum. Hepatic steatosis with focal fatty sparing at the jag hepatis. Cholecystectomy. The pancreas, spleen, and adrenal glands are unremarkable. No retroperitoneal lymphadenopathy. Mild calcified plaque within the normal caliber abdominal aorta. A 7 mm exophytic hypodense lesion within the left kidney. This is too small to characterize. Normal right kidney. No renal stones are hydronephrosis. Normal bladder. No bowel wall thickening or obstruction. Normal appendix. IMPRESSION: 1. Fat-containing umbilical hernia. There is mild surrounding fat stranding at the hernia sac. Therefore, this could represent strangulation of the herniated fat. No bowel identified within the hernia sac. No bowel wall thickening or obstruction. 2. Normal appendix. 3. No renal or ureteral stones. No hydronephrosis. 4. Hepatic steatosis. 5. A 5 mm subpleural nodule at the base of the left lower lobe. Please refer to the chart below for recommended follow-up. Laboratory Results 01/30/18 17:00 Red Blood Count 5.25, Mean Corpuscular Volume 88.2, Mean Corpuscular Hemoglobin 31.6, Mean Corpuscular Hemoglobin Concent 35.9, Mean Platelet Volume 10.1, Neutrophils (%) (Auto) 58.9, Lymphocytes (%) (Auto) 29.9, Monocytes (%) (Auto) 5.9, Eosinophils (%) (Auto) 4.5, Basophils (%) (Auto) 0.4, Neutrophils # (Auto) 5.97, Lymphocytes # (Auto) 3.03, Monocytes # (Auto) 0.60, Eosinophils # (Auto) 0.46, Basophils # (Auto) 0.04 01/30/18 17:00 Test 01/30/18 17:00 01/30/18 17:10 White Blood Count 10.14 K/uL (4.8-10.8) Red Blood Count 5.25 M/uL (4.7-6.1) Hemoglobin 16.6 g/dL (14.0-18.0) Hematocrit 46.3 % (42-52) Mean Corpuscular Volume 88.2 fL (80-100) Mean Corpuscular Hemoglobin 31.6 pg (25-34) Mean Corpuscular Hemoglobin Concent 35.9 g/dl (32-36) Platelet Count 215 K/uL (130-400) Mean Platelet Volume 10.1 fL (7.4-10.4) Neutrophils (%) (Auto) 58.9 % Lymphocytes (%) (Auto) 29.9 % Monocytes (%) (Auto) 5.9 % Eosinophils (%) (Auto) 4.5 % Basophils (%) (Auto) 0.4 % Neutrophils # (Auto) 5.97 K/uL (1.4-6.5) Lymphocytes # (Auto) 3.03 K/uL (1.2-3.4) Monocytes # (Auto) 0.60 K/uL (0.11-0.59) Eosinophils # (Auto) 0.46 K/uL (0-0.5) Basophils # (Auto) 0.04 K/uL (0-0.2) RDW Standard Deviation 44.5 fL (36.4-46.3) RDW Coefficient of Variation 13.7 % (11.5-14.5) Immature Granulocyte % (Auto) 0.4 % Immature Granulocyte # (Auto) 0.04 K/uL (0.00-0.02) Anion Gap 8.0 mmol/L (3-11) Est Creatinine Clear Calc Drug Dose 122.4 ml/min Estimated GFR () 109.9 Estimated GFR (Non- 94.8 BUN/Creatinine Ratio 10.4 (10-20) Calcium Level 8.8 mg/dl (8.5-10.1) Total Bilirubin 0.5 mg/dl (0.2-1) Aspartate Amino Transf (AST/SGOT) 28 U/L (15-37) Alanine Aminotransferase (ALT/SGPT) 39 U/L (12-78) Alkaline Phosphatase 66 U/L (45-117) Total Protein 7.0 gm/dl (6.4-8.2) Albumin 3.7 gm/dl (3.4-5.0) Globulin 3.3 gm/dl (2.5-4.0) Albumin/Globulin Ratio 1.1 (0.9-2) Lipase 121 U/L (73-393) Urine Color YELLOW Urine Appearance CLEAR (CLEAR) Urine pH 6.5 (4.5-7.5) Urine Specific [place] 1.023 (1.000-1.030) Urine Protein NEG (NEG) Urine Glucose (UA) NEG (NEG) Urine Ketones NEG (NEG) Urine Occult Blood NEG (NEG) Urine Nitrite NEG (NEG) Urine Bilirubin NEG (NEG) Urine Urobilinogen NEG (NEG) Urine Leukocyte Esterase NEG (NEG) Medications Administered Medications (Trade) Dose Ordered Sig/Shruthi Route Start Time Stop Time Status Last Admin Dose Admin Sodium Chloride 1,000 ml @ 999 mls/hr Q1H1M STAT IV 01/30/18 17:01 01/30/18 18:01 DC 01/30/18 17:20 999 MLS/HR Sodium Chloride 1,000 ml @ 250 mls/hr Q4H STAT IV 01/30/18 17:01 01/30/18 21:00 01/30/18 17:20 250 MLS/HR Ondansetron HCl (Zofran Inj) 4 mg NOW STAT IV 01/30/18 17:01 01/30/18 17:05 DC 01/30/18 17:20 4 MG Morphine Sulfate (MoRPHine SULFATE INJ) 6 mg NOW STAT IV 01/30/18 17:01 01/30/18 17:05 DC 01/30/18 17:20 6 MG Morphine Sulfate (MoRPHine SULFATE INJ) 4 mg Q1H PRN IV 01/30/18 17:15 02/13/18 17:14 01/30/18 20:04 4 MG ED Course The patient was seen and evaluated as above. His old records were reviewed. IV lock was initiated and laboratory studies were collected. He was made n.p.o. He was hydrated with normal saline solution, and medicated with morphine 6 mg and Zofran 4 mg IV. CBC with differential, CMP, lipase and urinalysis were collected. Acute abdominal series was obtained, which was unremarkable. There is a nonobstructive bowel gas pattern without pneumoperitoneum. White count is not elevated. He is not anemic. Electrolytes, renal functions and liver functions are normal. Lipase is not elevated. Urinalysis is completely clear. CT scan of the abdomen and pelvis with IV contrast noted a fat-containing umbilical hernia, with some mild surrounding fat stranding, possibly representing strangulation of the herniated fat. There was no bowel identified in the hernia sac, no bowel wall thickening or obstruction. The appendix was visualized as normal. There was no renal or ureteral stones and no hydronephrosis. All laboratory and diagnostic imaging studies were reviewed with attending physician who also independently evaluated the patient. When the patient was reexamined after he returned from CAT scan, there was now erythema around the umbilical hernia site. He remains very tender. He was given an additional dose of morphine [address] scan findings were reviewed with general surgery on-call, Zacarias Dye PA-C, who came to the emergency department and evaluated the patient, with surgeon, Dr. Arenas. They have elected to admit the patient to the hospital for surgical intervention tomorrow. Please refer their surgical H&P for further information. Differential diagnoses entertained included incarcerated hernia, bowel obstruction, perforation, diverticulitis, abscess, mass or malignancy, UTI, pyelonephritis, renal colic, appendicitis, among others. Medical Decision See ED Course. Medication Reconcilliation Current Medication List: was personally reviewed by ri Blood Pressure Screening Patient's blood pressure: Elevated blood pressure Blood pressure disposition: Elevated BP felt to be situational Impression Primary Impression: Incarcerated umbilical hernia Departure Information Dispostion Being Evaluated By Surgeon Referrals Dorian Avila D.O. (PCP) Patient Instructions My [facility]
[2018-01-30] MEDS: MoRPHine SULFATE 4 MG/ML 1 ML CARP\\VIAL IV PRN ×2 (19:05→20:04)
[2018-01-30] MEDS ORDERED: ACETAMINOPHEN IV 100 ML IV PRN (20:00)
[2018-01-30] MEDS ORDERED: ONDANSETRON INJ 2 MG/ML 2 ML VIAL IV PRN (20:00)
[2018-01-30] MEDS ORDERED: HYDROmorphone INJ 1 MG/ML SYR IV PRN ×2 (20:00)
--- NOTE | 2018-01-30 20:06 | Surgery Consultation ---
Consultation Date of Consultation: Jan 30, 2018. Attending Physician: Reason for Consultation: incarcerated umbilical hernia History of Present Illness Patient is a 47M who presented to the ED this evening with his due to abdominal pain x 4 days. Patient notes he had a cholecystectomy in the past and has had an umbilical hernia since. Reports he also had a post op complication where they had to drain some infected fluid. Denies any other abdominal surgeries. Reports he has pain at the hernia site occasionally for some time now but it has been getting worse over the past few months. Denies fever/chills/ nausea/vomiting. He has been moving his bowels without issue. He has had some loose stools the past couple of days but no other issues moving his bowels. He last ate earlier today without issue. Denies use of blood thinning or anticoagulant medications. PMHx significant for fertility problems for which he currently takes a testosterone supplement. He also takes prilosec for GERD. Denies any other medical issues. CT in the ED shows a fat containing incarcerated umbilical hernia. Past Medical/Surgical History Medical Problems: (1) GERD (gastroesophageal reflux disease) Status: Chronic (2) Hypertension Status: Chronic (3) Infertility Status: Chronic Family History Diabetes mellitus Gallbladder disease Heart disease Hypertension Social History Smoking Status: Current Every Day Smoker Drug Use: none Marital Status: Housing Status: lives with significant other Occupation Status: employed Allergies Coded Allergies: NKECHI Inhibitors (Unverified Allergy, Severe, HIVES, 01/30/18) Cephalosporins (Unverified Allergy, Severe, HIVES, 01/30/18) Mometasone (Unverified Allergy, Unknown, ., 01/30/18) Home Medications Scheduled Anastrozole (Anastrozole), 1 MG PO DAILY Omeprazole (Prilosec), 20 MG PO DAILY Scheduled PRN Acetaminophen Tab (Tylenol), 650 MG PO Q4 PRN for Pain or Fever Current Inpatient Medications Current Inpatient Medications Medications (Trade) Dose Ordered Sig/Shruthi Route Start Time Stop Time Status Last Admin Dose Admin Sodium Chloride 1,000 ml @ 250 mls/hr Q4H STAT IV 01/30/18 17:01 01/30/18 21:00 01/30/18 17:20 250 MLS/HR Morphine Sulfate (MoRPHine SULFATE INJ) 4 mg Q1H PRN IV 01/30/18 17:15 02/13/18 17:14 01/30/18 19:05 4 MG Ioversol (Optiray 320) 100 ml UD PRN IV 01/30/18 17:15 02/03/18 17:14 Review of Systems Constitutional: No fever, No chills Respiratory: No shortness of breath Cardiovascular: No chest pain Abdomen: + pain (periumbilical, mild/mod.), No nausea, No vomiting, No diarrhea , No constipation Genitourinary - Male: No hematuria, No dysuria Integumentary: + color change (some redness at hernia site.) Physical Exam Date Time Temp Pulse Resp B/P (MAP) Pulse Ox O2 Delivery O2 Flow Rate FiO2 01/30/18 19:08 82 18 146/94 96 Room Air 01/30/18 18:19 82 20 164/97 94 Room Air 01/30/18 17:20 82 18 178/109 96 Room Air 01/30/18 16:37 36.7 95 18 182/87 96 Room Air Patient laying in bed with at bedside. General Appearance: WD/WN, no apparent distress Head: normocephalic, atraumatic ENT: hearing grossly normal Neck: trachea midline Respiratory/Chest: no respiratory distress, no accessory muscle use Abdomen/GI: soft, no organomegaly, no pulsatile mass, + tenderness ( periumbilical), + pertinent finding (fat containing umbilical hernia with mild surrounding erythema, non-reducible on exam. ) Neurologic/Psych: alert, normal mood/affect, oriented x 3 Skin: normal color, warm/dry Laboratory Results Last 24 Hours Test 01/30/18 17:00 01/30/18 17:10 White Blood Count 10.14 K/uL Red Blood Count 5.25 M/uL Hemoglobin 16.6 g/dL Hematocrit 46.3 % Mean Corpuscular Volume 88.2 fL Mean Corpuscular Hemoglobin 31.6 pg Mean Corpuscular Hemoglobin Concent 35.9 g/dl Platelet Count 215 K/uL Mean Platelet Volume 10.1 fL Neutrophils (%) (Auto) 58.9 % Lymphocytes (%) (Auto) 29.9 % Monocytes (%) (Auto) 5.9 % Eosinophils (%) (Auto) 4.5 % Basophils (%) (Auto) 0.4 % Neutrophils # (Auto) 5.97 K/uL Lymphocytes # (Auto) 3.03 K/uL Monocytes # (Auto) 0.60 K/uL Eosinophils # (Auto) 0.46 K/uL Basophils # (Auto) 0.04 K/uL RDW Standard Deviation 44.5 fL RDW Coefficient of Variation 13.7 % Immature Granulocyte % (Auto) 0.4 % Immature Granulocyte # (Auto) 0.04 K/uL Sodium Level 139 mmol/L Potassium Level 3.8 mmol/L Chloride Level 106 mmol/L Carbon Dioxide Level 25 mmol/L Anion Gap 8.0 mmol/L Blood Urea Nitrogen 10 mg/dl Creatinine 0.94 mg/dl Est Creatinine Clear Calc Drug Dose 122.4 ml/min Estimated GFR () 109.9 Estimated GFR (Non- 94.8 BUN/Creatinine Ratio 10.4 Random Glucose 117 mg/dl Calcium Level 8.8 mg/dl Total Bilirubin 0.5 mg/dl Aspartate Amino Transf (AST/SGOT) 28 U/L Alanine Aminotransferase (ALT/SGPT) 39 U/L Alkaline Phosphatase 66 U/L Total Protein 7.0 gm/dl Albumin 3.7 gm/dl Globulin 3.3 gm/dl Albumin/Globulin Ratio 1.1 Lipase 121 U/L Urine Color YELLOW Urine Appearance CLEAR Urine pH 6.5 Urine Specific [place] 1.023 Urine Protein NEG Urine Glucose (UA) NEG Urine Ketones NEG Urine Occult Blood NEG Urine Nitrite NEG Urine Bilirubin NEG Urine Urobilinogen NEG Urine Leukocyte Esterase NEG Assessment & Plan incarcerated umbilical hernia Dr. Arenas in to see and examine the patient. Will plan for open umbilical hernia repair with possible mesh in the OR tomorrow with Dr. Arenas. Risks, benefits, alternatives to the procedure were discussed - all questions answered. Admit med/surg (Obs), NPO after midnight, IV fluids, pain medication PRN, zofran prn, SCDs. OR notified. Please contact with questions or concerns.
[2018-01-30 20:18] VITALS: O2SAT 95; Ht 175.3 cm; Wt 121.5 kg
[2018-01-30 20:30] VITALS: BP 156/95; PULSE 83; TEMP 36.3; O2SAT 94
[2018-01-30] MEDS: SODIUM CHLORIDE 0.9% 1000ML 1,000 ML IV SCH (20:51)
[2018-01-30] MEDS ORDERED: IV FLUIDS COMPLETED PRN (21:00)
[2018-01-30] MEDS ORDERED: PROMETHAZINE HCL INJ 12.5 MG in SODIUM CHLORIDE 0.9% 50ML 50 ML IV STA (22:30)
[2018-01-30 23:24] VITALS: BP 147/89; PULSE 73; TEMP 36.6; O2SAT 92
[2018-01-31] VITALS (8 sets, daily range): BP systolic 138–160; BP diastolic 70–92; PULSE 72–88; TEMP 36.6–37.4; O2SAT 93–96
[2018-01-31] MEDS: SODIUM CHLORIDE 0.9% 1000ML 1,000 ML IV SCH (05:45)
--- NOTE | 2018-01-31 06:20 | Surgery Progress Note ---
Surgery Progress Note Date of Service Jan 31, 2018. Subjective + feeling well, + flatus, + pain controlled, + nausea (Some nausea last night, resolved), + diet (NPO for procedure today), No complaints, No bowel movement, No vomiting Objective Vital Signs: Date Time Temp Pulse Resp B/P (MAP) Pulse Ox O2 Delivery O2 Flow Rate FiO2 01/30/18 23:25 Room Air 01/30/18 23:24 36.6 73 16 147/89 (108) 92 Room Air 01/30/18 20:30 36.3 83 16 156/95 (115) 94 Room Air 01/30/18 20:30 94 Room Air 01/30/18 20:18 95 Room Air 01/30/18 20:06 83 20 157/98 95 Room Air 01/30/18 19:08 82 18 146/94 96 Room Air 01/30/18 18:19 82 20 164/97 94 Room Air 01/30/18 17:20 82 18 178/109 96 Room Air 01/30/18 16:37 36.7 95 18 182/87 96 Room Air General Appearance: WD/WN, no apparent distress Head: normocephalic, atraumatic Neck: trachea midline Respiratory/Chest: no respiratory distress, no accessory muscle use Abdomen: soft, no organomegaly, no pulsatile mass, + distended (mild), + tenderness (at hernia site, unchanged from last night.) Laboratory Results: Results Past 24 Hours Test 01/30/18 17:00 01/30/18 17:10 Range/Units White Blood Count 10.14 4.8-10.8 K/uL Red Blood Count 5.25 4.7-6.1 M/uL Hemoglobin 16.6 14.0-18.0 g/dL Hematocrit 46.3 42-52 % Mean Corpuscular Volume 88.2 80-100 fL Mean Corpuscular Hemoglobin 31.6 25-34 pg Mean Corpuscular Hemoglobin Concent 35.9 32-36 g/dl Platelet Count 215 130-400 K/uL Mean Platelet Volume 10.1 7.4-10.4 fL Neutrophils (%) (Auto) 58.9 % Lymphocytes (%) (Auto) 29.9 % Monocytes (%) (Auto) 5.9 % Eosinophils (%) (Auto) 4.5 % Basophils (%) (Auto) 0.4 % Neutrophils # (Auto) 5.97 1.4-6.5 K/uL Lymphocytes # (Auto) 3.03 1.2-3.4 K/uL Monocytes # (Auto) 0.60 0.11-0.59 K/uL Eosinophils # (Auto) 0.46 0-0.5 K/uL Basophils # (Auto) 0.04 0-0.2 K/uL RDW Standard Deviation 44.5 36.4-46.3 fL RDW Coefficient of Variation 13.7 11.5-14.5 % Immature Granulocyte % (Auto) 0.4 % Immature Granulocyte # (Auto) 0.04 0.00-0.02 K/uL Sodium Level 139 136-145 mmol/L Potassium Level 3.8 3.5-5.1 mmol/L Chloride Level 106 98-107 mmol/L Carbon Dioxide Level 25 21-32 mmol/L Anion Gap 8.0 3-11 mmol/L Blood Urea Nitrogen 10 7-18 mg/dl Creatinine 0.94 0.60-1.40 mg/dl Est Creatinine Clear Calc Drug Dose 122.4 ml/min Estimated GFR () 109.9 Estimated GFR (Non- 94.8 BUN/Creatinine Ratio 10.4 10-20 Random Glucose 117 70-99 mg/dl Calcium Level 8.8 8.5-10.1 mg/dl Total Bilirubin 0.5 0.2-1 mg/dl Aspartate Amino Transf (AST/SGOT) 28 15-37 U/L Alanine Aminotransferase (ALT/SGPT) 39 12-78 U/L Alkaline Phosphatase 66 45-117 U/L Total Protein 7.0 6.4-8.2 gm/dl Albumin 3.7 3.4-5.0 gm/dl Globulin 3.3 2.5-4.0 gm/dl Albumin/Globulin Ratio 1.1 0.9-2 Lipase 121 73-393 U/L Urine Color YELLOW Urine Appearance CLEAR CLEAR Urine pH 6.5 4.5-7.5 Urine Specific [place] 1.023 1.000-1.030 Urine Protein NEG NEG Urine Glucose (UA) NEG NEG Urine Ketones NEG NEG Urine Occult Blood NEG NEG Urine Nitrite NEG NEG Urine Bilirubin NEG NEG Urine Urobilinogen NEG NEG Urine Leukocyte Esterase NEG NEG Assessment & Plan incarcerated umbilical hernia pain controlled, some nausea last night since resolved, no vomiting. Plan to proceed with open umbilical hernia repair with possible mesh in the OR today. Please contact with questions or concerns.
[2018-01-31] MEDS: PANTOprazole SOD 40 MG TAB PO SCH (07:50)
[2018-01-31] MEDS ORDERED: ONDANSETRON INJ 2 MG/ML 2 ML VIAL IV PRN ×2 (08:30→13:45)
[2018-01-31] MEDS ORDERED: MEPERIDINE HCL 25 MG/ML CARP IV PRN (08:30)
[2018-01-31] MEDS ORDERED: ATROPINE SULFATE 0.1 MG/ML 5ML SYR IV PRN (08:30)
[2018-01-31] MEDS ORDERED: HYDROmorphone INJ 1 MG/ML SYR IV PRN (08:30)
[2018-01-31] MEDS ORDERED: EpHEDrine SULFATE INJ 50 MG/ML AMP IV PRN (08:30)
[2018-01-31] MEDS ORDERED: LABETALOL HCL IV 5 MG/ML 20ML IV PRN (08:30)
[2018-01-31] MEDS ORDERED: FENTANYL CITRATE INJ 50 MCG/1 ML 2 ML VIAL IV PRN (08:30)
[2018-01-31] MEDS ORDERED: FENTANYL CITRATE INJ 50 MCG/1 ML 2 ML VIAL ONE ×3 (10:56→13:14)
[2018-01-31] MEDS ORDERED: MIDAZOLAM HCL 1 MG/ML 2ML VIAL ONE (10:56)
[2018-01-31] MEDS ORDERED: DEXAMETHASONE SOD INJ 4 MG/ML VIAL ONE (10:58)
[2018-01-31] MEDS ORDERED: PROPOFOL IV EMULSION 10 MG/ML 20 ML VIAL IV ONE (10:58)
[2018-01-31] MEDS ORDERED: ONDANSETRON INJ 2 MG/ML 2 ML VIAL ONE (10:58)
[2018-01-31] MEDS ORDERED: LIDOCAINE HCL 2% 2 ML VIAL (20MG/ML) ONE (10:58)
[2018-01-31] MEDS ORDERED: BUPIVACAINE 0.5 % 5 MG/1 ML MPF 30ML VIAL ONE (12:00)
[2018-01-31] MEDS ORDERED: GLYCOPYRROLATE INJ 0.2 MG/ML VIAL ONE (13:00)
[2018-01-31] MEDS ORDERED: ROCURONIUM BROMIDE 10 MG/ML 5 ML VIAL IV ONE (13:00)
[2018-01-31] MEDS ORDERED: NEOSTIGMINE METHYLSULFATE 5 MG/5 ML SYR ONE (13:00)
[2018-01-31] MEDS ORDERED: KETOROLAC TROMETHAMINE 30 MG/ML VIAL ONE (13:03)
--- NOTE | 2018-01-31 13:15 | [facility] Post Operative Brief Note ---
Immediate Operative Summary Operative Date Jan 31, 2018. Pre-Operative Diagnosis Incarcerated Umbilical hernia Post-Operative Diagnosis Same Procedure(s) Performed Open Umbilical Hernia Repair with Mesh Surgeon Dr Arenas [employer] Surgeon(s) Rosalia Noel PA-C Estimated Blood Loss 6ml Findings Consistent with Post-Op Diagnosis Incarcerated omentum reduced. Mesh placed Specimens None Drains None Anesthesia Type General Complication(s) none Disposition Accompanied Pt To Recover: no Disposition: Recovery Room / PACU
--- NOTE | 2018-01-31 13:19 | [facility] Operative Report ---
Operative Report Operative Date Jan 31, 2018. Pre-Operative Diagnosis Incarcerated Umbilical hernia Post-Operative Diagnosis Incarcerated umbilical hernia Procedure(s) Performed Incarcerated umbilical hernia repair with mesh Surgeon Dr Arenas [employer] Captain Surgeon(s) Rosalia Noel PA-C Estimated Blood Loss 6ml Findings Chronic incarcerated hernia containing omentum. Hernia sac opened and omentum was viable and reduced. 4.3 cm CQur mesh sewn in place with interrupted 0 Nurolon sutures. Specimens None Drains None Anesthesia General Complication(s) None Disposition Recovery Room / PACU Indications 47-year-old male admitted overnight with incarcerated umbilical hernia, plan for open umbilical hernia repair. The risks of the procedure were discussed, all questions were answered, and the patient agreed to proceed with surgery as planned. Description of Procedure The patient was properly identified, consented, and taken to the operating room where he was placed in the supine position. General endotracheal anesthesia was induced. SCDs and a safety belt were placed. Preoperative antibiotics were administered. The patient's abdomen was prepped and draped in the standard sterile fashion. Surgical timeout was performed and all parties were in agreement that this was the correct patient and procedure to be performed and we continued as planned. A curvilinear infraumbilical incision was made and deepened down to the fascia with blunt dissection. The umbilical stalk was circumferentially dissected with a Lauren, and divided below the level of the skin. There is a chronically incarcerated hernia that appear to contain omentum. The hernia sac was chronically scarred to the fascia and surrounding tissue. This was dissected away from the surrounding tissue. The hernia sac was resected and the omentum appeared viable and was reduced back into the abdomen. A 2 cm fascial defect was encountered. The hernia was reduced. The fascia anteriorly and posteriorly was cleared of investing tissue for several centimeters. Hemostasis was achieved within the wound. A 4.3 cm piece of Cqur mesh was sown into place with interrupted 0 Nurolon sutures. The wound was irrigated and hemostasis confirmed. The umbilicus was tacked down to the fascia with 3-0 Vicryl sutures. Local anesthetic in the form of 0.5% Marcaine was injected in the fascia and along the skin incision. The skin was closed with interrupted 3-0 Vicryl deep dermal sutures, followed by 4-0 Monocryl running subcuticular suture. Dermabond was placed over the wound. Pressure dressing was placed at the umbilicus after the Dermabond dried, and abdominal binder was placed around the patient The patient was extubated in the operating room and taken to the PACU where he recovered without apparent incident. All sponge, instrument and needle counts were correct at the conclusion of the procedure. The patient tolerated the procedure well. The physician's radiology physician assistant was present and scrubbed for the entire to the case. She was essential in positioning the patient, prepping and draping, retraction and exposure, repair the hernia, closure of the incision, and placement of the dressings. I attest to the content of the Intraoperative Record and any orders documented therein. Any exceptions are noted below.
[2018-01-31] MEDS ORDERED: OXYC-57 PO (13:35)
--- NOTE | 2018-01-31 13:37 | Discharge Instructions ---
Discharge Instructions Date of Service Jan 31, 2018. Admission Reason for Admission: Umbilical Hernia, Incarcerated Discharge Discharge Diagnosis / Problem: Umbilical Hernia, Incarcerated Discharge Goals Goal(s): Decrease discomfort, Improve function Activity Recommendations Activity Limitations: as noted below Lifting Limitations: no more than 10 pounds Exercise/Sports Limitations: until after follow-up appointment May Resume Sexual Activity: after follow-up appointment Shower/Bathe: tomorrow Driving or Machine Use: resume 3 days after discharge . Instructions / Follow-Up Instructions / Follow-Up You may remove your dressing tomorrow and shower. You have surgical glue, Dermabond, over your incision. Please do not soak or scrub your incision. Please follow-up with Dr. Arenas in the [facility] located at [address] [place] [address] [place] in 1[place]2 [place]. Please call the office at to make this appointment. Please call the office with any questions or concerns. Current Hospital Diet Patient's current hospital diet: Regular Diet Discharge Diet Recommended Diet: Regular Diet Procedures Procedures Performed: Open Umbilical Hernia Repair with Mesh Pending Studies Studies pending at discharge: no Medical Emergencies . Who to Call and When: Medical Emergencies: If at any time you feel your situation is an emergency, please call 911 immediately. . Non-Emergent Contact Non-Emergency issues call your: Primary Care Provider, Surgeon Call Non-Emergent contact if: temperature is above 101.5, your pain is not controlled, wound has increased drainage, wound has increased redness . "Provider Documentation" section prepared by Rosalia Noel. .
[2018-01-31] MEDS ORDERED: MoRPHine SULFATE 4 MG/ML 1 ML CARP\\VIAL IV PRN (13:45)
[2018-01-31] MEDS ORDERED: OXYCODONE/ACETAMINOPHEN 5-325 TAB PO PRN (13:45)
[2018-01-31] MEDS ORDERED: MoRPHine SULFATE 2 MG/ML CARP IV PRN ×2 (13:45)
[2018-01-31] MEDS ORDERED: PROMETHAZINE HCL INJ 25 MG in SODIUM CHLORIDE 0.9% 50ML 50 ML IV STA (14:07)
[2018-01-31] MEDS ORDERED: NURSING VERBAL MED ORDER ONE ×2 (14:15→19:45)
[2018-01-31] MEDS: LACTATED RINGER'S 1000ML 1,000 ML IV SCH (16:16)
[2018-01-31] MEDS: OXYCODONE/ACETAMINOPHEN 5-325 TAB PO PRN ×2 (19:10→23:08)
[2018-01-31] MEDS ORDERED: PANTOprazole SOD 40 MG TAB PO ONE (20:00)
[2018-02-01] MEDS: LACTATED RINGER'S 1000ML 1,000 ML IV SCH (00:50)
[2018-02-01 03:34] VITALS: BP 132/72; PULSE 72; TEMP 36.8; O2SAT 94
--- NOTE | 2018-02-01 06:35 | Surgery Progress Note ---
Surgery Progress Note Date of Service Feb 01, 2018. Subjective Post OP Day: 1 + feeling well, + complaints (Still having some incisional pain), + diet ( Tolerating regular diet), No bowel movement, No flatus, No nausea, No vomiting Patient sitting in chair wearing abdominal binder which he states has been helping him get out of bed and move around easier. Objective Vital Signs: Date Time Temp Pulse Resp B/P (MAP) Pulse Ox O2 Delivery O2 Flow Rate FiO2 02/01/18 03:34 36.8 72 16 132/72 (92) 94 Room Air 02/01/18 00:35 Room Air 01/31/18 22:56 37.2 72 16 147/80 (102) 94 Room Air 01/31/18 18:13 37.0 88 17 138/89 (105) 95 Room Air 01/31/18 16:58 37.3 82 16 139/80 (99) 96 Nasal Cannula 3.0 01/31/18 16:00 37.4 81 17 160/91 (114) 93 Nasal Cannula 2.0 01/31/18 15:28 36.6 81 16 147/92 (110) 94 Nasal Cannula 2.0 01/31/18 15:15 95 Nasal Cannula 2.0 01/31/18 15:00 36.9 81 18 156/92 (113) 95 Nasal Cannula 2.0 01/31/18 14:35 80 15 141/79 94 Nasal Cannula 2 01/31/18 14:20 36.3 85 15 143/92 95 Nasal Cannula 2 01/31/18 14:10 70 16 146/86 95 Nasal Cannula 2 01/31/18 14:00 90 17 147/94 95 Nasal Cannula 2 01/31/18 13:50 86 14 164/95 95 Nasal Cannula 2 01/31/18 13:40 89 18 141/87 95 Oxymask 8 01/31/18 13:34 36.2 93 16 120/91 94 Oxymask 8 01/31/18 07:41 36.9 80 21 143/70 (94) 94 Room Air 01/31/18 07:15 Room Air General Appearance: WD/WN, no apparent distress Head: normocephalic, atraumatic Neck: trachea midline Respiratory/Chest: no respiratory distress, no accessory muscle use Abdomen: no organomegaly, no pulsatile mass, + distended, + tenderness ( Incisional) Incision(s): clean, dry, intact, no erythema, no drainage Assessment & Plan POD #1 incarcerated umbilical hernia repair with mesh Having some incisional pain, Tolerating regular diet, No N/V. Urinating okay. Continue using abdominal binder. encourage PO pain meds. D/C likely today when pain controlled. Please contact with questions or concerns. incarcerated umbilical hernia pain controlled, some nausea last night since resolved, no vomiting. Plan to proceed with open umbilical hernia repair with possible mesh in the OR today. Please contact with questions or concerns.
[2018-02-01 07:43] VITALS: BP 132/72; PULSE 72; TEMP 36.8; O2SAT 94
[2018-02-01 07:51] VITALS: BP 154/90; PULSE 69; TEMP 36.4; O2SAT 97
[2018-02-01] MEDS: PANTOprazole SOD 40 MG TAB PO SCH (07:58)
[2018-02-01 08:00] VITALS: O2SAT 97
== END 2018-02-01 08:05 | disposition home or self-care (01) ==
LOC: C.EDB 16:37 → C.MSN 19:57 → ENRESERV 20:00
PROVIDERS: ADMIT Surgery; ATTEND Surgery
DX: K42.0 Umbilical hernia with obstruction, without gangrene (principal); K21.9 Gastro-esophageal reflux disease without esophagitis; N46.9 Male infertility, unspecified; F17.200 Nicotine dependence, unspecified, uncomplicated; I10 Essential (primary) hypertension; Z83.3 Family history of diabetes mellitus; Z83.79 Family history of other diseases of the digestive system; Z82.49 Family history of ischemic heart disease and other diseases of the circulatory system; Z79.899 Other long term (current) drug therapy; E66.9 Obesity, unspecified

== ENCOUNTER → 2018-02-19 | Outpatient (CLI) | payer BC ==
[~2018-02-19] MED LIST changes: -CLOM50TA6 PO; -NAPR-1169 PO; -OXYC-57 PO
[2018-02-19 15:32] LABS: BASO % 0.6 %; BASO ABS # 0.07 K/uL (0-0.2); EOS % 7.8 %; EOS ABS # 0.91 K/uL (0-0.5); HEMATOCRIT 47.6 % (42-52); HEMOGLOBIN 16.7 g/dL (14.0-18.0); IG# 0.07 K/uL (0.00-0.02); LYMPH % 35.3 %; LYMPH ABS # 4.13 K/uL (1.2-3.4); MEAN CELL VOLUME 88.1 fL (80-100); MEAN CORPUSCULAR HEMOGLOBIN 30.9 pg (25-34); MEAN CORPUSCULAR HGB CONC 35.1 g/dl (32-36); MEAN PLATELET VOLUME 10.2 fL (7.4-10.4); MONO % 5.5 %; MONO ABS # 0.64 K/uL (0.11-0.59); NEUT % 50.2 %; NEUT ABS # 5.88 K/uL (1.4-6.5); PLATELET COUNT 242 K/uL (130-400); RED CELL DISTRIBUTION WIDTH CV 13.3 % (11.5-14.5)
--- NOTE | 2018-02-19 15:52 | DIAGNOSTIC IMAGING REPORT ---
CHEST 2 VIEWS ROUTINE CLINICAL HISTORY: 47 years-old Male presenting with K42.0 Incarcerated umbilical [id number] Aftercare following liz. TECHNIQUE: PA and lateral views of the chest were obtained. COMPARISON: 01/30/2018. FINDINGS: Atherosclerosis of the aortic arch. Cardiac silhouette top normal in size. No focal opacity. No large effusion or pneumothorax. Cortical compression plate and screw fixation of the left clavicle. Upper abdomen normal. IMPRESSION: 1. No acute cardiopulmonary disease. Electronically signed by: Julio Angelo M.D. 02/19/2018 3:51 PM Dictated Date/Time: 02/19/2018 3:50 PM
[2018-02-19 16:05] LABS: ALBUMIN 3.9 gm/dl (3.4-5.0); ALT/SGPT 55 U/L (12-78); BLOOD UREA NITROGEN 14 mg/dl (7-18); CARBON DIOXIDE 25 mmol/L (21-32); CREATININE 0.98 mg/dl (0.60-1.40); GLUCOSE 102 mg/dl (70-99); POTASSIUM 4.1 mmol/L (3.5-5.1); SODIUM 138 mmol/L (136-145)
[2018-02-19 16:08] LABS: ALKALINE PHOSPHATASE 72 U/L (45-117); AST/SGOT 34 U/L (15-37); TOTAL PROTEIN 7.3 gm/dl (6.4-8.2)
== END | disposition home or self-care (01) ==
LOC: C.RAD 14:14
PROVIDERS: ATTEND Surgery
DX: K42.0 Umbilical hernia with obstruction, without gangrene (principal); Z48.89 Encounter for other specified surgical aftercare

== ENCOUNTER → 2018-06-05 | Outpatient (CLI) | payer BC ==
[~2018-06-05] MED LIST changes: -ACET-1693 PO; -ARM1 PO
--- NOTE | 2018-06-05 09:56 | DIAGNOSTIC IMAGING REPORT ---
PET/CT SKULL-THIGH HISTORY: Mass ANTERIOR MEDIANSTINAL TUMOR TECHNIQUE: PET/CT was performed from the base of the skull through the pelvis following the intravenous administration of 15.4 mCi of F18-FDG. Non-contrast CT imaging was performed over the same range without breath-hold for attenuation correction of PET images and anatomic correlation, but not for primary interpretation as it is not of standard diagnostic quality. CT DOSE: COMPARISON: None. FINDINGS: HEAD AND NECK: Multinodular thyroid. No abnormal activity characteristics. CHEST: There is no FDG-avid disease in the chest. There is no axillary, mediastinal, or hilar lymphadenopathy. There is no pleural or pericardial effusion. There is no air-space disease or suspicious lung nodule. 2 cm anterior mediastinal nodule showing no abnormal activity characteristics. ABDOMEN/PELVIS: Below the diaphragm, tracer is distributed physiologically in the gastrointestinal and genitourinary tracts. There is no significant lymphadenopathy and no FDG-avid disease. MUSCULOSKELETAL: There is no FDG-avid or destructive bone lesion. IMPRESSION: There is no definite evidence of recurrent FDG-avid disease. 2 cm nodule anterior mediastinum showing no abnormal activity characteristics. The above report was generated using voice recognition software. It may contain grammatical, syntax or spelling errors. Electronically signed by: Blanco Jimenez M.D. 06/05/2018 9:54 AM Dictated Date/Time: 06/05/2018 9:48 AM
== END | disposition home or self-care (01) ==
LOC: C.PET 07:14
PROVIDERS: ATTEND Internal Medicine Pulmonary Disease
DX: D49.89 Neoplasm of unspecified behavior of other specified sites (principal)

== ENCOUNTER 2022-03-03 21:33 | Observation (INO) ==
--- NOTE | 2022-03-03 22:02 | Emergency Department Note ---
History of Present Illness General Chief complaint: TIA Symptoms Stated complaint: NUMBNESS IN R HAND, SLIGHT FACIAL DROOP R SIDE Time Seen by Provider: 03/03/22 21:48 Source: patient and other (Coworker who is at the bedside) Mode of arrival: ambulatory Limitations: no limitations History of Present Illness This patient is a 51-year-old left-handed male who was well until around 9:00 when he was at work he noticed his right hand went completely numb he could not feel the fourth and fifth fingers and then it spread to his hand then also to the cheek and tongue and said it felt like his tongue was off and he had a little bit of trouble swallowing. This lasted about 20 minutes he says he feels better except for his tongue still feels slightly off. He has had no trouble speaking however no symptoms in the leg no headache no trauma or injury. No chest pain or shortness of breath he is on no blood thinners.he is not diabetic. No history of similar. No recent illness Home Medications Medication Instructions Recorded Confirmed Type omeprazole magnesium 20 mg 20 mg PO DAILY 07/21/19 03/03/22 History tablet,delayed release (Prilosec OTC) ibuprofen 200 mg tablet (Advil) 400 mg PO Q6H PRN 03/03/22 03/03/22 History multivitamin 1 tab PO DAILY 03/03/22 03/03/22 History Allergies Allergy/AdvReac Type Severity Reaction Status Date / Time NKECHI Inhibitors Allergy Severe HIVES Verified 03/03/22 22:15 Cephalosporins Allergy Severe HIVES Verified 03/03/22 22:15 mometasone furoate Allergy Unknown Hives Verified 03/03/22 22:15 Past Med/Surg History Medical History Arthritis Fracture GERD (gastroesophageal reflux disease) Heart burn Hypertension Muscle spasm Umbilical hernia, incarcerated Surgical History History of cholecystectomy Family History Other Family history unknown Myocardial infarction Social History Smoking Status: Current every day smoker Second Hand Exposure: Yes; Hx Alcohol Use: No Hx Substance Use: No Preferred Language: Slovak Communication Ability: Effective Boiler Tube Blower Required: No Beliefs That Will Affect Care: None Current Living Situation: Alone Feels Safe at Home: Yes Assistive Devices: Glasses Review of Systems A total of 10 systems reviewed and were otherwise negative Physical Exam Vital Signs Vital Signs - 24 hr 03/03/22 21:34 03/03/22 21:35 03/03/22 21:49 Temperature 36.5 C Temperature Source Temporal Artery Scan Pulse Rate 80 77 Pulse Rate [Bilateral Apical] Pulse Rate from SpO2 Sensor Pulse Rhythm Regular Pulse Strength Normal Respiratory Rate 20 18 22 Respiratory Effort / Characteristics Non-Labored Non-Labored Spontaneous Respiratory Depth Normal Normal Respiratory Pattern Regular Blood Pressure 204/112 H Blood Pressure [Left Arm] Blood Pressure Mean 142 Blood Pressure Mean [Left Arm] Blood Pressure Position Sitting Pulse Oximetry 98 96 Oxygen Delivery Method Room Air Room Air Sepsis Recent Fever Within 48 Hours No Sepsis New/Unexplained Change in Mental Status N/A Sepsis Action Taken by Nursing No Action Required 03/03/22 22:11 03/03/22 22:12 03/03/22 22:30 Temperature Temperature Source Pulse Rate 77 74 76 Pulse Rate [Bilateral Apical] Pulse Rate from SpO2 Sensor 74 75 Pulse Rhythm Pulse Strength Respiratory Rate 22 21 18 Respiratory Effort / Characteristics Respiratory Depth Respiratory Pattern Blood Pressure 182/95 H 172/97 H Blood Pressure [Left Arm] Blood Pressure Mean 124 122 Blood Pressure Mean [Left Arm] Blood Pressure Position Pulse Oximetry 98 97 96 Oxygen Delivery Method Sepsis Recent Fever Within 48 Hours Sepsis New/Unexplained Change in Mental Status Sepsis Action Taken by Nursing 03/03/22 23:38 03/04/22 00:18 03/04/22 00:51 Temperature Temperature Source Pulse Rate Pulse Rate [Bilateral Apical] 76 70 67 Pulse Rate from SpO2 Sensor Pulse Rhythm Pulse Strength Respiratory Rate 20 20 20 Respiratory Effort / Characteristics Respiratory Depth Respiratory Pattern Blood Pressure Blood Pressure [Left Arm] 177/98 H 185/110 H 185/113 H Blood Pressure Mean Blood Pressure Mean [Left Arm] 124 135 137 Blood Pressure Position Pulse Oximetry 98 96 98 Oxygen Delivery Method Room Air Room Air Room Air Sepsis Recent Fever Within 48 Hours Sepsis New/Unexplained Change in Mental Status Sepsis Action Taken by Nursing General: Well developed well nourished not ill-appearing middle-age male who appears in no acute distress, breathing comfortably on room air. Normal speech HEENT: Normal cephalic atraumatic. Pupils are equal round and reactive to light. Extraocular movements are intact. Oropharynx is pink with moist mucous membranes. No swelling of the mouth lips or tongue. No swelling of the tongue or posterior oropharynx the floor the mouth is soft. Neck: Supple with a midline trachea. No meningeal signs or stiffness, no JVD or bruits. No Stridor. Chest: Clear to auscultation bilaterally. No wheezes or rhonchi. No increased work of breathing. Heart: Regular rate and rhythm without murmurs or gallops. Abdomen: Soft nontender, nondistended without rebound guarding or rigidity. Extremities: No cyanosis clubbing or edema. No calf tenderness or assymetry Spine/Back. Non tender to palpation. No CVA tenderness Skin: Good turgor without rashes. Neurologic exam: Cranial nerves two through 12 are intact. Motor and sensation are intact and symmetrical throughout. Course Administered Medications Discontinued Medications Aspirin (Aspirin 81 Mg Chew) 324 mg PO NOW STA Stop: 03/03/22 22:46 Last Admin: 03/03/22 22:47 Dose: 324 mg Documented by: [id number] Atorvastatin Calcium (Atorvastatin 40 Mg Tab) 40 mg PO ONE ONE Stop: 03/03/22 22:46 Last Admin: 03/03/22 22:53 Dose: 40 mg Documented by: [id number] Sodium Chloride (Nss 1000ml) 1,000 mls @ 999 mls/hr IV .Q1H1M ONE Stop: 03/03/22 23:55 Last Infusion: 03/04/22 00:01 Dose: 0 mls/hr Documented by: [id number] Admin: 03/03/22 22:59 Dose: 999 mls/hr Documented by: [id number] Ioversol (Optiray 320 125ml) 120 ml IV ONCE ONE Stop: 03/03/22 22:12 Last Admin: 03/03/22 22:11 Dose: 120 ml Documented by: [id number] Critical Care Time Critical Care Time: Yes Total Critical Care Time: 35 Due to the patient's strokelike symptoms and the need to call a stroke alert, follow-up discussions with the stroke neurologist, frequent reassessment and consideration for time-limited interventions as well as medications given in the ED, I have personally spent greater than 35 minutes of critical care time in the direct management of this patient. This includes bedside care, interpretation of diagnostic studies, and testing, discussion with consultants, patient, and family members, and other required patient management activities. This 35 minutes is in excess of all separately billable procedures. Medical Decision Making Differential Diagnosis Stroke, TIA, electrolyte or metabolic abnormality, infection, neuropathy Medical Records Attestation: I reviewed the patient's medical records. Home Medications Current Medication List: was personally reviewed by me Laboratory Data Attestation: I reviewed the patient's lab results. Result diagrams: 03/03/22 21:58 03/03/22 21:50 Lab Results 03/03/22 03/03/22 03/03/22 Range/Units 21:50 21:50 21:58 WBC 10.44 (4.8-10.8) K/uL RBC 4.87 (4.7-6.1) M/uL Hgb 16.1 (14.0-18.0) g/dL Hct 46.4 (42-52) % MCV 95.3 (80-100) fL MCH 33.1 (25-34) pg MCHC 34.7 (32-36) g/dL RDW Std Deviation 46.7 H (36.4-46.3) fL RDW Coeff of Memo 13.4 (11.5-14.5) % Plt Count 210 (130-400) K/uL MPV 10.4 (7.4-10.4) fL Immature Gran % (Auto) 0.3 % Neut % (Auto) 56.8 % Lymph % (Auto) 30.8 % [place] % (Auto) 6.1 % Eos % (Auto) 5.4 % Baso % (Auto) 0.6 % Neut # (Auto) 5.93 (1.4-6.5) K/uL Lymph # (Auto) 3.22 (1.2-3.4) K/uL [place] # (Auto) 0.64 H (0.11-0.59) K/uL Eos # (Auto) 0.56 H (0-0.5) K/uL Baso # (Auto) 0.06 (0-0.2) K/uL Immature Gran # (Auto) 0.03 H (0.00-0.02) K/uL PT 10.9 (9.0-12.0) Seconds INR 1.0 (0.9-1.1) APTT 28.8 (21.0-31.0) Seconds PTT Ratio 1.0 Sodium 137 (136-145) mmol/L Potassium 4.2 (3.5-5.1) mmol/L Chloride 105 (98-107) mmol/L Carbon Dioxide 27 (21-32) mmol/L Anion Gap 5 (3-11) BUN 11 (6-23) mg/dl Creatinine 0.95 (0.6-1.4) mg/dl Est Cr Clr Drug Dosing 113.9 ml/min Est GFR ( Amer) 105.5 ml/min Est GFR (Non-Af Amer) 91.0 ml/min BUN/Creatinine Ratio 11.6 (10-20) Glucose 104 H (70-99(Fasting)) mg/dl Calcium 9.2 (8.5-10.1) mg/dl Magnesium 2.2 (1.7-2.4) mg/dl Total Bilirubin 0.5 (0.2-1.0) mg/dl AST 22 (13-39) U/L ALT 31 (7-52) U/L Alkaline Phosphatase 71 (34-104) U/L Troponin I High Sens 4.5 (0-20) pg/ml Total Protein 6.9 (6.0-8.3) gm/dl Albumin 4.3 (3.4-5.0) gm/dl Globulin 2.6 (2.5-4.0) gm/dl Albumin/Globulin Ratio 1.7 (0.9-2) SARS-CoV-2, RNA, NAAT (NEGATIVE) 03/03/22 Range/Units 23:40 WBC (4.8-10.8) K/uL RBC (4.7-6.1) M/uL Hgb (14.0-18.0) g/dL Hct (42-52) % MCV (80-100) fL MCH (25-34) pg MCHC (32-36) g/dL RDW Std Deviation (36.4-46.3) fL RDW Coeff of Memo (11.5-14.5) % Plt Count (130-400) K/uL MPV (7.4-10.4) fL Immature Gran % (Auto) % Neut % (Auto) % Lymph % (Auto) % [place] % (Auto) % Eos % (Auto) % Baso % (Auto) % Neut # (Auto) (1.4-6.5) K/uL Lymph # (Auto) (1.2-3.4) K/uL [place] # (Auto) (0.11-0.59) K/uL Eos # (Auto) (0-0.5) K/uL Baso # (Auto) (0-0.2) K/uL Immature Gran # (Auto) (0.00-0.02) K/uL PT (9.0-12.0) Seconds INR (0.9-1.1) APTT (21.0-31.0) Seconds PTT Ratio Sodium (136-145) mmol/L Potassium (3.5-5.1) mmol/L Chloride (98-107) mmol/L Carbon Dioxide (21-32) mmol/L Anion Gap (3-11) BUN (6-23) mg/dl Creatinine (0.6-1.4) mg/dl Est Cr Clr Drug Dosing ml/min Est GFR ( Amer) ml/min Est GFR (Non-Af Amer) ml/min BUN/Creatinine Ratio (10-20) Glucose (70-99(Fasting)) mg/dl Calcium (8.5-10.1) mg/dl Magnesium (1.7-2.4) mg/dl Total Bilirubin (0.2-1.0) mg/dl AST (13-39) U/L ALT (7-52) U/L Alkaline Phosphatase (34-104) U/L Troponin I High Sens (0-20) pg/ml Total Protein (6.0-8.3) gm/dl Albumin (3.4-5.0) gm/dl Globulin (2.5-4.0) gm/dl Albumin/Globulin Ratio (0.9-2) SARS-CoV-2, RNA, NAAT NEGATIVE (NEGATIVE) Imaging Data Attestation: I personally reviewed and interpreted this imaging study as follows: My Impression: CT of the headno acute hemorrhage or mass seen Radiologist's Impression: CTA of the head and neck, CAT scan of the head: There is a 3 mm left basal ganglier age-indeterminate infarct. No other abnormality seen. Please refer to report. ECG Data Attestation: I personally reviewed and interpreted this ECG as follows: Indication: + weakness Rate (beats per minute): 75 Rhythm: + normal sinus ECG Intervals/blocks: + Normal QRS, + Normal QT and + Normal VT ECG [place]: + Normal ECG ST segments: + Normal ST segments ECG Findings: no PACs or no PVCs Comparison ECG Date: from (11/24/17) Change: no significant change MDM Narrative This patient comes in as described above. The patient has stroke like symptoms that started at 9:00 last about 20 minutes they resolved and his hand however he still says his tongue feels slightly off and swollen but on exam is not swollen and he has a normal neurologic exam I did call a stroke alert given the fact that he is within 1 hour of his symptoms. His blood pressure was initially high but seems to be trending downward when rechecked it is now in the 180s systolic. I did call a stroke alert and he had a stat CAT scan and CTAs as well as blood work. I did discuss the case with Dr. Davis from her she telestroke. He agrees that at this point he would not tPA the patient given his minimal symptoms. He did recommend aspirin and the patient was given 324 mg chewable he was also given a statin atorvastatin [address] Golden did not recommend Plavix and Lasix the patient got worse. The patient is doing well at present. His COVID test was negative. He will need to be admitted for further stroke wor k-up. His scan does shows an age-indeterminate lacunar infarct which could certainly explain his symptoms. He was hydrated with normal saline as well. His blood pressure did come down into the 170s over 90s and I did call the hospitalist to admit him for further treatment and evaluation. Continuous cardiac monitoring: Orders placed in EMR for continuous cardiac monitoring. Upon my interpretation patient noted to be in normal sinus rhythm with a rate of 67. Impression & Plan Stroke, Numbness and tingling in right hand, Numbness of tongue, Lab test negative for COVID-19 virus Discharge Plan Visit Data Chief Complaint: TIA Symptoms Stated Complaint: NUMBNESS IN R HAND, SLIGHT FACIAL DROOP R SIDE ED Provider: Zacarias Martinez Discharge Problem: Stroke, Numbness and tingling in right hand, Numbness of tongue, Lab test negative for COVID-19 virus Forms Stand Alone Forms: My [facility] Prescriptions Prescriptions: No Action omeprazole magnesium [Prilosec OTC] 20 mg Tablet,Delayed Release (Dr/Ec) 20 mg PO DAILY RF: 0 multivitamin Tablet 1 tab PO DAILY RF: 0 ibuprofen [Advil] 200 mg Tablet 400 mg PO Q6H PRN (Reason: Pain) RF: 0 Referrals Referrals: Dorian Avila DO [Primary Care Provider] - Discharge Problem: Stroke Qualifiers: CVA mechanism: unspecified Qualified Code(s): I63.9 - Cerebral infarction, unsp ecified
[2022-03-03] MEDS ORDERED: OPTIRAY 320 125ml IV ONE (22:11)
[2022-03-03 22:18] LABS: Basophils # (auto) 0.06 K/uL (0-0.2); Basophils % (auto) 0.6 %; Eosinophils # (auto) 0.56 K/uL (0-0.5); Eosinophils % (auto) 5.4 %; Hematocrit (blood only) 46.4 % (42-52); Hemoglobin 16.1 g/dL (14.0-18.0); Immature Granulocytes # (auto) 0.03 K/uL (0.00-0.02); Immature Granulocytes % (auto) 0.3 %; Lymphocytes # (auto) 3.22 K/uL (1.2-3.4); Lymphocytes % (auto) 30.8 %; Mean Corpuscular Hemoglobin 33.1 pg (25-34); Mean Corpuscular Hgb Conc 34.7 g/dL (32-36); Mean Corpuscular Volume 95.3 fL (80-100); Mean Platelet Volume 10.4 fL (7.4-10.4); Monocytes # (auto) 0.64 K/uL (0.11-0.59); Monocytes % (auto) 6.1 %; Neutrophils # (auto) 5.93 K/uL (1.4-6.5); Neutrophils % (auto) 56.8 %; Platelet Count 210 K/uL (130-400); RDW Coefficient of Variation 13.4 % (11.5-14.5); RDW Standard Deviation 46.7 fL (36.4-46.3); Red Blood Count 4.87 M/uL (4.7-6.1); White Blood Count 10.44 K/uL (4.8-10.8)
[2022-03-03 22:18] LABS: Partial Thromboplastin Time 28.8 Seconds (21.0-31.0); Prothrombin Time 10.9 Seconds (9.0-12.0)
[2022-03-03 22:31] LABS: Troponin I High Sensitivity 4.5 pg/ml (0-20)
[2022-03-03 22:37] LABS: Albumin Globulin Ratio 1.7 (0.9-2); Albumin Level 4.3 gm/dl (3.4-5.0); BUN Creatinine Ratio 11.6 (10-20); Bilirubin,Total 0.5 mg/dl (0.2-1.0); Calcium 9.2 mg/dl (8.5-10.1); Creatinine Clr Calc Pharmacy 113.9 ml/min; Est GFR (African American) 105.5 ml/min; Globulin 2.6 gm/dl (2.5-4.0); Magnesium 2.2 mg/dl (1.7-2.4); Potassium 4.2 mmol/L (3.5-5.1); Total Protein 6.9 gm/dl (6.0-8.3)
[2022-03-03] MEDS ORDERED: ASPIRIN 81 MG CHEW PO STA (22:45)
[2022-03-03] MEDS ORDERED: ATORVASTATIN 40 MG TAB PO ONE (22:45)
[2022-03-03] MEDS ORDERED: SODIUM CHLORIDE 0.9% 1000ML 1,000 ML IV ONE (22:55)
--- NOTE | 2022-03-04 00:20 | History & Physical Report ---
Date of Service March 04, 2022 Assessment & Plan (1) Numbness and tingling in right hand: Plan: 51-year-old male with history of hypertension presenting with acute onset numbness/tingling/weakness of right hand as well as right side of face. Symptoms lasted approximately 20 minutes and have since resolved. Patient is presently back to baseline. Work-up with evidence of age-indeterminate left basal ganglia stroke. No seizure-like activity or involuntary movements reported ABCD 2 score = 3, low risk Patient has received aspirin as well as statin Observation to medical with telemetry Neurochecks per protocol, NIH stroke scale daily Check hemoglobin A1c and lipid profile Dysphagia screening now and as needed Check MRI brain Check 2D echo Continue aspirin 81 mg p.o. daily, atorvastatin 40 mg p.o. daily PT/OT evaluation appreciated (2) Numbness of tongue: Plan: As above. Numbness has since resolved. Tongue is midline, speech is clear, no facial droop (3) Hypertension: Plan: Blood pressure elevated presently 188/97. Patient with history of hypertension, is not presently taking any medications Consider initiation of blood pressure management prior to discharge Continue to follow (4) Thyroid nodule: Plan: Low-density lesion of the right lobe of the thyroid noted on CT imaging as above. Check TSH with a.m. labs Check thyroid ultrasound (5) Tobacco use disorder: Plan: Patient active smoker. Does not wish to have nicotine patch at this time Smoking cessation counseling Patient reports drinking daily approximately 3-4 beers per day. No history of cravings or withdrawal symptoms. Last drink was yesterday Monitor for withdrawal Plan: FENHep-Lock, electrolytes within normal limits, heart healthy diet as tolerated ProphylaxisSCDs to bilateral lower extremities [place] per discussion with patient Dispositionobservation to medical telemetry History of Present Illness Chief Complaint: Right hand numbness Primary Care Provider: Dorian Avila DO Jackson Capps is a 51yo male with history of GERD and HTN presenting with strokelike symptoms. Patient was at work this evening around 2100 when he developed numbness of the fourth and fifth finger of his right hand. He then had numbness involving his entire hand as well as the right side of his face and tongue. He felt weakness in his hands. Denies speech deficit, visual changes or headache. Symptoms lasted approximately 20 minutes then began to resolve. In the ER he was still having some mild numbness the right side of his tongue. Otherwise, no complaints. Specifically denies fever/chills/chest pain/palpitations/cough/shortness of breath/nausea/vomiting/diarrhea/constipation. All other symptoms normal. In the ER, code stroke was called. Case was discussed between ER physician and stroke team at [place]. Patient was administered aspirin 324 mg as well as atorvastatin 40 mg. During my encounter, patient is without complaints. Feels that he is completely back to normal. He is unaware of any previous stroke and states he has never had focal neurological deficits in the past that he can recall. ER course: Aspirin 324 mg, atorvastatin 40 mg, normal saline Allergies Allergy/AdvReac Type Severity Reaction Status Date / Time NKECHI Inhibitors Allergy Severe HIVES Verified 03/03/22 22:15 Cephalosporins Allergy Severe HIVES Verified 03/03/22 22:15 mometasone furoate Allergy Unknown Hives Verified 03/03/22 22:15 Home Medications Medication Instructions Recorded Confirmed Type omeprazole magnesium 20 mg 20 mg PO DAILY 07/21/19 03/03/22 History tablet,delayed release (Prilosec OTC) ibuprofen 200 mg tablet (Advil) 400 mg PO Q6H PRN 03/03/22 03/03/22 History multivitamin 1 tab PO DAILY 03/03/22 03/03/22 History Past Med/Surg History Medical History Arthritis Fracture GERD (gastroesophageal reflux disease) Hypertension Muscle spasm Umbilical hernia, incarcerated Surgical History History of cholecystectomy Family History Other Family history unknown Myocardial infarction Social History Smoking Status: Current every day smoker Second Hand Exposure: Yes; Hx Alcohol Use: Yes Hx Substance Use: No Preferred Language: Frisian Communication Ability: Effective [place] Man Required: No Beliefs That Will Affect Care: None Current Living Situation: Alone Feels Safe at Home: Yes Assistive Devices: Glasses Review of Systems Review of Systems: All systems reviewed & are unremarkable except as noted in HPI & below Physical Exam Physical Exam: General: patient resting comfortably, NAD, non-toxic in appearance, AA&O x 4 Skin: warm, dry, intact, no rashes or lesions, telangiectasias present on cheeks HEENT: NC/AT, PERRL, EOMI, anicteric sclera, conjunctiva without injection, external ear normal to inspection and nontender, nares patent, moist mucus membranes, dentition intact, no oropharyngeal lesions, neck supple, trachea midline, no LAD, no thyromegaly, no JVD Heart: +S1/S2, regular, no m/r/g Lungs: equal air entry bilaterally, no rales/rhonchi/wheezes Abd: +BS, soft, NT/ND, no masses/organomegaly/ascites Ext: warm, 2+ pulses in UE/LE bilaterally, no clubbing/cyanosis or edema Neuro: speech intact, no facial droop, CN II - XII grossly intact, nonfocal, patient AA&O x 4, speech intact, no facial droop, moving all extremities on command with equal strength 5/5 Results & Data Results & Data ([facility]) Vital Signs (Past 12 Hours) Vital Signs Temp Pulse Pulse Resp BP BP Pulse Ox 03/04/22 00:18 70 20 185/110 H 96 03/03/22 23:38 76 20 177/98 H 98 03/03/22 22:30 76 18 172/97 H 96 03/03/22 22:12 74 21 182/95 H 97 03/03/22 22:11 77 22 98 03/03/22 21:49 77 22 03/03/22 21:35 36.5 C 80 18 204/112 H 96 03/03/22 21:34 20 98 Laboratory Results Laboratory Results WBC 10.44 K/uL (4.8-10.8) 03/03/22 21:58 RBC 4.87 M/uL (4.7-6.1) 03/03/22 21:58 Hgb 16.1 g/dL (14.0-18.0) 03/03/22 21:58 Hct 46.4 % (42-52) 03/03/22 21:58 MCV 95.3 fL (80-100) 03/03/22 21:58 MCH 33.1 pg (25-34) 03/03/22 21:58 MCHC 34.7 g/dL (32-36) 03/03/22 21:58 RDW Std Deviation 46.7 fL (36.4-46.3) H 03/03/22 21:58 RDW Coeff of Memo 13.4 % (11.5-14.5) 03/03/22 21:58 Plt Count 210 K/uL (130-400) 03/03/22 21:58 MPV 10.4 fL (7.4-10.4) 03/03/22 21:58 Immature Gran % (Auto) 0.3 % 03/03/22 21:58 Neut % (Auto) 56.8 % 03/03/22 21:58 Lymph % (Auto) 30.8 % 03/03/22 21:58 Knott % (Auto) 6.1 % 03/03/22 21:58 Eos % (Auto) 5.4 % 03/03/22 21:58 Baso % (Auto) 0.6 % 03/03/22 21:58 Neut # (Auto) 5.93 K/uL (1.4-6.5) 03/03/22 21:58 Lymph # (Auto) 3.22 K/uL (1.2-3.4) 03/03/22 21:58 Knott # (Auto) 0.64 K/uL (0.11-0.59) H 03/03/22 21:58 Eos # (Auto) 0.56 K/uL (0-0.5) H 03/03/22 21:58 Baso # (Auto) 0.06 K/uL (0-0.2) 03/03/22 21:58 Immature Gran # (Auto) 0.03 K/uL (0.00-0.02) H 03/03/22 21:58 PT 10.9 Seconds (9.0-12.0) 03/03/22 21:50 INR 1.0 (0.9-1.1) 03/03/22 21:50 APTT 28.8 Seconds (21.0-31.0) 03/03/22 21:50 PTT Ratio 1.0 03/03/22 21:50 Sodium 137 mmol/L (136-145) 03/03/22 21:50 Potassium 4.2 mmol/L (3.5-5.1) 03/03/22 21:50 Chloride 105 mmol/L (98-107) 03/03/22 21:50 Carbon Dioxide 27 mmol/L (21-32) 03/03/22 21:50 Anion Gap 5 (3-11) 03/03/22 21:50 BUN 11 mg/dl (6-23) 03/03/22 21:50 Creatinine 0.95 mg/dl (0.6-1.4) 03/03/22 21:50 Est Cr Clr Drug Dosing 113.9 ml/min 03/03/22 21:50 Est GFR ( Amer) 105.5 ml/min 03/03/22 21:50 Est GFR (Non-Af Amer) 91.0 ml/min 03/03/22 21:50 BUN/Creatinine Ratio 11.6 (10-20) 03/03/22 21:50 Glucose 104 mg/dl (70-99(Fasting)) H 03/03/22 21:50 Calcium 9.2 mg/dl (8.5-10.1) 03/03/22 21:50 Magnesium 2.2 mg/dl (1.7-2.4) 03/03/22 21:50 Total Bilirubin 0.5 mg/dl (0.2-1.0) 03/03/22 21:50 AST 22 U/L (13-39) 03/03/22 21:50 ALT 31 U/L (7-52) 03/03/22 21:50 Alkaline Phosphatase 71 U/L (34-104) 03/03/22 21:50 Troponin I High Sens 4.5 pg/ml (0-20) 03/03/22 21:50 Total Protein 6.9 gm/dl (6.0-8.3) 03/03/22 21:50 Albumin 4.3 gm/dl (3.4-5.0) 03/03/22 21:50 Globulin 2.6 gm/dl (2.5-4.0) 03/03/22 21:50 Albumin/Globulin Ratio 1.7 (0.9-2) 03/03/22 21:50 SARS-CoV-2, RNA, NAAT NEGATIVE (NEGATIVE) 03/03/22 23:40 Diagnostic Findings Per stat rad: CT head: Moderate brain volume loss. Mild chronic ischemic changes. Left basal ganglia 3 mm area of low attenuation. No mass or hemorrhage. Fluid in the left maxillary sinus. Partial opacification of ethmoid air cells. Mastoids and bones are intact. Impression: Age-indeterminate left basal ganglia small infarct. Recommend MRI CTA head: Mild atherosclerosis of the cavernous carotid arteries. The MCAs and ACAs are intact. Vertebrals and basilar intact. origin of the right DISPLAY ASSOCIATE. Left DISPLAY ASSOCIATE intact. Impression: No acute findings. CTA neck: Aortic arch intact. Mild atherosclerosis of the right carotid bulb. Right ICA intact. Minimal atherosclerosis of the left carotids. The vertebral arteries are intact. Upper lung jimenez are clear. Low-density lesion of the right lobe of the thyroid measuring 1.6 cm. No acute findings in the bones. Impression: No acute findings. Thyroid lesion which requires follow-up ECG Additional Comments: EKGby my interpretation the study shows normal sinus rhythm at 75 bpm, normal axis, normal intervals with VT = 150, QRS = 94, QTC = 437. Normal waveforms with no STT wave changes. No evidence of LVH Code Status & VTE Plan VTE Prophylaxis Plan VTE Prophylaxis will be ordered: Yes PG Care Time/CCT Total # of Minutes Spent Total Time Spent with Patient: Total time spent is greater than 50% in coordination of care (as documented) at patient's floor/unit and/or counseling patient: Coding Level of Care Code INT OBSERVATION CARE 50M LVL 2 Diagnoses Numbness and tingling in right hand R20.0; R20.2 Numbness of tongue R20.0 Tobacco use disorder F17.200 Thyroid nodule E04.1 Hypertension I10
[2022-03-04] MEDS ORDERED: ONDANSETRON INJ 2 MG/ML 2 ML VIAL IV PRN (01:39)
[2022-03-04] MEDS ORDERED: ACETAMINOPHEN 325 MG TAB PO PRN (01:39)
[2022-03-04 05:48] LABS: Basophils # (auto) 0.06 K/uL (0-0.2); Basophils % (auto) 0.6 %; Eosinophils # (auto) 0.74 K/uL (0-0.5); Eosinophils % (auto) 7.5 %; Hematocrit (blood only) 44.5 % (42-52); Hemoglobin 15.5 g/dL (14.0-18.0); Immature Granulocytes # (auto) 0.04 K/uL (0.00-0.02); Immature Granulocytes % (auto) 0.4 %; Lymphocytes # (auto) 3.22 K/uL (1.2-3.4); Lymphocytes % (auto) 32.5 %; Mean Corpuscular Hgb Conc 34.8 g/dL (32-36); Mean Corpuscular Volume 94.7 fL (80-100); Mean Platelet Volume 10.5 fL (7.4-10.4); Monocytes # (auto) 0.68 K/uL (0.11-0.59); Monocytes % (auto) 6.9 %; Neutrophils # (auto) 5.16 K/uL (1.4-6.5); Neutrophils % (auto) 52.1 %; Platelet Count 200 K/uL (130-400); RDW Coefficient of Variation 13.4 % (11.5-14.5); RDW Standard Deviation 46.4 fL (36.4-46.3)
[2022-03-04 06:22] LABS: Thyroid Stimulating Hormone 5.401 uIu/ml (0.300-4.500)
[2022-03-04 06:44] LABS: BUN Creatinine Ratio 10.9 (10-20); Calcium 8.3 mg/dl (8.5-10.1); Chol HDL Ratio 5.5 (0-5); Creatinine Clr Calc Pharmacy 118.1 ml/min; Est GFR (African American) 109.7 ml/min; Est GFR (Non-African American) 94.6 ml/min; Potassium 3.5 mmol/L (3.5-5.1)
[2022-03-04 06:57] LABS: T4 Free Thyroxine 0.9 ng/dl (0.61-1.60)
[2022-03-04] MEDS: ATORVASTATIN 40 MG TAB PO SCH (08:07)
[2022-03-04] MEDS: ASPIRIN 81 MG ECTAB PO SCH (08:07)
[2022-03-04 08:34] LABS: Estimated Average Glucose 134 mg/dl; Hemoglobin A1C 6.3 % (4.5-5.6)
--- NOTE | 2022-03-04 08:42 | CT Scan Report ---
HEAD CT NONCONTRAST CT DOSE: 1551.38 mGy.cm HISTORY: Right-sided facial and hand numbness. Stroke Like Symptoms TECHNIQUE: Multiaxial CT images of the head were performed without the use of intravenous contrast. A utomated exposure control was utilized for this study. A dose lowering technique was utilized adheri ng to the principles of ALARA. Comparison: None. Findings: Partial opacification of the ethmoid air cells with a small fluid level within the left max illary sinus. The calvarium and skull base are intact. The ventricles and sulci are within normal phillips its. There is no mass, hematoma, midline shift, or acute infarct. Punctate hypodensity within the lef t basal ganglia consistent with an age-indeterminate lacunar infarct. This is likely chronic. Impression: 1. Punctate hypodensity within the left basal ganglia consistent with an age-indeterminate infarct. T his is likely chronic but will be better present on the same day brain MRI. 2. Acute left maxillary sinusitis. ACT 112: Negative or not required by law. Electronically signed by: Agustin Mcpherson M.D. 03/04/2022 8:41 AM
--- NOTE | 2022-03-04 08:48 | CT Scan Report ---
HEAD & NECK CTA HISTORY: Right-sided facial numbness. Stroke Like Symptoms TECHNIQUE: Multiaxial CT images of the head were performed the intravenous administration of contrast to evaluate the major cerebral vessels. Multiaxial CT images of the neck were also performed followi ng the intravenous administration of contrast to evaluate the major cervical vessels. Maximum intensi ty projection images were also obtained. A dose lowering technique was utilized adhering to the princ iples of BRANDON. COMPARISON: Noncontrast head CT 03/03/2022. Chest CTA 09/23/2018. FINDINGS: There is no mass, hematoma, midline shift, or acute infarct. Visualized intracranial internal carotid arteries, distal vertebral arteries, and basilar artery are widely patent. There is no significant s tenosis, occlusion, or aneurysm seen within the bilateral ACAs are MCAs. origin of the right PC A which appears patent. Moderate focal narrowing within the proximal left POUNCER of approximately 50% be st seen on image 95. Mild calcified plaque within the bilateral carotid siphons. The major dural veno us sinuses are patent. Paranasal sinus disease is again noted. The aortic arch and proximal great vessels are widely patent. There is no significant stenosis, occ lusion, or dissection identified within the bilateral common carotid, internal carotid, or vertebral arteries. A 3 mm nodule within the right upper lobe on image 37. This demonstrates greater than 2 yea r stability and is therefore considered to be benign. Cortical plate noted within the left clavicle. A 2 cm right thyroid nodule, unchanged. Mild calcified plaque within the right bifurcation. Slightly hypoplastic right vertebral artery. IMPRESSION: 1. Focal area of moderate stenosis within the proximal left POUNCER of approximately 50%. Otherwise, no s ignificant stenosis, occlusion, or aneurysm within the [place]. 2. No significant stenosis, occlusion, or dissection identified within the carotid or vertebral arter ies. 3. A 2 cm right thyroid nodule, unchanged. This is better appreciated on a 04/11/2018. Thyroid ultraso und. ACT 112: Negative or not required by law. Electronically signed by: Agustin Mcpherson M.D. 03/04/2022 8:47 AM
--- NOTE | 2022-03-04 08:48 | CT Scan Report ---
HEAD & NECK CTA HISTORY: Right-sided facial numbness. Stroke Like Symptoms TECHNIQUE: Multiaxial CT images of the head were performed the intravenous administration of contrast to evaluate the major cerebral vessels. Multiaxial CT images of the neck were also performed followi ng the intravenous administration of contrast to evaluate the major cervical vessels. Maximum intensi ty projection images were also obtained. A dose lowering technique was utilized adhering to the princ iples of BRANDON. COMPARISON: Noncontrast head CT 03/03/2022. Chest CTA 09/23/2018. FINDINGS: There is no mass, hematoma, midline shift, or acute infarct. Visualized intracranial internal carotid arteries, distal vertebral arteries, and basilar artery are widely patent. There is no significant s tenosis, occlusion, or aneurysm seen within the bilateral ACAs are MCAs. origin of the right PC A which appears patent. Moderate focal narrowing within the proximal left PRODUCTION WORKER of approximately 50% be st seen on image 95. Mild calcified plaque within the bilateral carotid siphons. The major dural veno us sinuses are patent. Paranasal sinus disease is again noted. The aortic arch and proximal great vessels are widely patent. There is no significant stenosis, occ lusion, or dissection identified within the bilateral common carotid, internal carotid, or vertebral arteries. A 3 mm nodule within the right upper lobe on image 37. This demonstrates greater than 2 yea r stability and is therefore considered to be benign. Cortical plate noted within the left clavicle. A 2 cm right thyroid nodule, unchanged. Mild calcified plaque within the right bifurcation. Slightly hypoplastic right vertebral artery. IMPRESSION: 1. Focal area of moderate stenosis within the proximal left PRODUCTION WORKER of approximately 50%. Otherwise, no s ignificant stenosis, occlusion, or aneurysm within the [place] of [place]. 2. No significant stenosis, occlusion, or dissection identified within the carotid or vertebral arter ies. 3. A 2 cm right thyroid nodule, unchanged. This is better appreciated on a 04/11/2018. Thyroid ultraso und. ACT 112: Negative or not required by law. Electronically signed by: Agustin Mcpherson M.D. 03/04/2022 8:47 AM
--- NOTE | 2022-03-04 09:13 | Ultrasound Report ---
THYROID ULTRASOUND HISTORY: Follow-up thyroid nodule. nodule noted on CT COMPARISON: Thyroid ultrasound 04/11/2018. FINDINGS: Right lobe: 52 x 18 x 21 mm. There is again noted a solid and cystic hypoechoic nodule within the rig ht lobe which measures approximately 25 x 20 x 17 mm. This is not significantly changed. Left lobe: 57 x 14 x 19 mm. There is a 6 mm hypoechoic nodule. Isthmus: 4 mm in thickness. No nodules. IMPRESSION: Stable 25 x 20 x 17 mm right thyroid nodule. If not already performed, fine-needle aspiration is drew mmended. ACT 112: Negative or not required by law. Electronically signed by: Agustin Mcpherson M.D. 03/04/2022 9:12 AM
[2022-03-04] MEDS: GADOBUTROL 65ML VIAL IV ONE ×2 (09:41→10:28)
[2022-03-04] MEDS ORDERED: GADOBUTROL 30ML VIAL IV ONE (09:52)
--- NOTE | 2022-03-04 10:07 | Magnetic Resonance Report ---
Brain MRI WITH AND WITHOUT CONTRAST HISTORY: Right hand numbness. Right facial numbness. Blurred vision. ?TIA TECHNIQUE: Multiplanar multisequence MRI of the brain was performed both before and after the intrave nous administration of contrast. COMPARISON STUDY: Head CT 03/03/2022. FINDINGS: There are no areas of restricted diffusion to suggest acute infarction. The midline structu res are intact. Mild mucosal thickening within the paranasal sinuses with partial opacification of th e ethmoid air cells and a small fluid level within the left maxillary sinus. There is a punctate old lacunar infarct seen within the left basal ganglia. A few scattered punctate foci of T2 hyperintensit y seen within the periventricular and subcortical white matter of the supratentorial brain. These are nonspecific but favor mild microvascular ischemic change given the patient's age. The mastoid air ce lls are clear. The ventricles and sulci are within normal limits for age. There is no mass, hematoma, midline shift. The major vascular flow-voids at the skull base are well maintained. Postcontrast seq uences show no areas of abnormal enhancement. IMPRESSION: 1. No acute intracranial abnormality. 2. A few scattered foci of T2 hyperintensity seen within the periventricular and subcortical white ma tter are nonspecific but favor microvascular ischemic change. 3. Sinus disease as described above. ACT 112: Negative or not required by law. Electronically signed by: Agustin Mcpherson M.D. 03/04/2022 10:05 AM
--- NOTE | 2022-03-04 11:41 | Electrocardiogram Report ---
Test Reason : Blood Pressure : / mmHG Vent. Rate : 075 BPM Atrial Rate : 075 BPM P-R Int : 150 ms QRS Dur : 094 ms QT Int : 392 ms P-R-T Axes : 052 032 029 degrees QTc Int : 437 ms Normal sinus rhythm Normal ECG When compared with ECG of 24-SEP-2018 06:16, No significant change was found Confirmed by Marco Small ([id number]) on 03/04/2022 11:40:58 AM Referred By: REFERRED SELF Confirmed By:Marco Small
--- NOTE | 2022-03-04 12:17 | XCELERA ---
[id number]
--- NOTE | 2022-03-05 07:55 | Discharge Summary ---
Date of Service March 05, 2022 Admission HPI Per Admitting Provider Jackson Capps is a 51yo male with history of GERD and HTN presenting with strokelike symptoms. Patient was at work this evening around 2100 when he developed numbness of the fourth and fifth finger of his right hand. He then had numbness involving his entire hand as well as the right side of his face and tongue. He felt weakness in his hands. Denies speech deficit, visual changes or headache. Symptoms lasted approximately 20 minutes then began to resolve. In the ER he was still having some mild numbness the right side of his tongue. Otherwise, no complaints. Specifically denies fever/chills/chest pain/palpita tions/cough/shortness of breath/nausea/vomiting/diarrhea/constipation. All other symptoms normal. In the ER, code stroke was called. Case was discussed between ER physician and stroke team at [facility]. Patient was administered aspirin 324 mg as well as atorvastatin 40 mg. During my encounter, patient is without complaints. Feels that he is completely back to normal. He is unaware of any previous stroke and states he has never had focal neurological deficits in the past that he can recall. 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 #Thyroid nodules #Uncontrolled hypertension #Hyperlipidemia #Prediabetic with A1c of 6.3 #Tobacco abuse Discharge Exam General: patient resting comfortably, NAD, non-toxic in appearance, AA&O x 4 Skin: warm, dry, intact, no rashes or lesions, telangiectasias present on cheeks HEENT: NC/AT, PERRL, EOMI, anicteric sclera, conjunctiva without injection, external ear normal to inspection and nontender, nares patent, moist mucus membranes, dentition intact, no oropharyngeal lesions, neck supple, trachea midline, no LAD, no thyromegaly, no JVD Heart: +S1/S2, regular, no m/r/g Lungs: equal air entry bilaterally, no rales/rhonchi/wheezes Abd: +BS, soft, NT/ND, no masses/organomegaly/ascites Ext: warm, 2+ pulses in UE/LE bilaterally, no clubbing/cyanosis or edema Neuro: speech intact, no facial droop, CN II - XII grossly intact, nonfocal, patient AA&O x 4, speech intact, no facial droop, moving all extremities on command with equal strength 5/5 Discharge Data Allergies Allergy/AdvReac Type Severity Reaction Status Date / Time NKECHI Inhibitors Allergy Severe HIVES Verified 03/03/22 22:15 Cephalosporins Allergy Severe HIVES Verified 03/03/22 22:15 mometasone furoate Allergy Unknown Hives Verified 03/03/22 22:15 Consultations 03/03/22 23:28 ED Decision to Admit Stat Ordered Studies 03/03/22 21:58 CT angio head w con Stat CT angio neck with con Stat CT head/brain wo con Stat 03/04/22 01:39 MR brain wo/w con Routine 03/04/22 02:40 thyroid Routine Hospital Course (1) Numbness and tingling in right hand: 51-year-old male with history of hypertension presenting with acute onset numbness/tingling/weakness of right hand , right side of his tongue, right cheek that lasted about half an hour symptoms lasted approximately 20 minutes and have since resolved. Patient is presently back to baseline after half an hour. CT of brain showed evidence of age-indeterminate left basal ganglia stroke. However MRI did not confirm there CT scan findings. It only showed few scattered foci of T2 hyperintensities within the periventricular and subcortical white matter which are nonspecific but favored microvascular ischemic change. CT of the brain showed Moderate stenosis of left [employer] about 50%. However there was no evidence of carotid artery stenosis No seizure-like activity or involuntary movements reported A1c of 6.3 LDL 95 The patient started on aspirin, the dose of atorvastatin increased to 80 mg daily patient has history of smoking, recommended to stop smoking and discharged on nicotine patch Patient advised to exercise on regular basis and advised to lose weight He was discharged on Jardiance 10 mg daily Possibly patient suffers also from carpal tunnel syndrome the patient was advised in case of recurrence of the symptoms follow-up with neurology The patient was advised to follow-up with Dr. Ritchie neurology within 1 to 2-week (2) Numbness of tongue: As above. Numbness has since resolved. Tongue is midline, speech is clear, no facial droop (3) Hypertension: Blood pressure elevated presently 188/97. Patient with history of hypertension, is not presently taking any medications Started on Norvasc 10 mg daily Patient was advised to follow-up with PCP 1 to 2 weeks Stop smoking Losing weight follow healthy diet (4) Thyroid nodule: Low-density lesion of the right lobe of the thyroid noted on CT imaging as above. -Ultrasound of the thyroid gland confirmed nodule in the right lobe, there is another nodule in the left lobe Patient is referred to PCP for outpatient work-up, referral for fine-needle aspiration TSH is elevated 5.4 A-free T4 is 0.9 (5) Tobacco use disorder: Patient active smoker. Smoking cessation counseling Discharged on nicotine patch (6) Prediabetes: Recommended to lose weight exercise on a daily basis having healthy diet -Started on Jardiance 10 mg daily FENHep-Lock, electrolytes within normal limits, heart healthy diet as tolerated ProphylaxisSCDs to bilateral lower extremities [place]ef[place] per discussion with patient Dispositionobservation to medical telemetry Total Time Total Time Spent Total Time Spent (In Minutes): 45 Discharge Plan Discharge Items Patient Disposition: Home - Self-Care Reason For Visit: STROKE-LIKE SYMPTOMS Discharge Diagnosis: facial numbness Activity: Resume your previous activity Lifting: Gradually increase as tolerated Bathing: No limitations Sexual Activity: When tolerated Exercise/Sports: Gradually increase as tolerated Driving/Machine Use: No limitations Weightbearing: Full weightbearing Non-emergency contact: Primary Care Provider Call non-emergency contact if: you have any medication questions Follow-up/Referrals: Zacarias Ritchie MD [Physician] - 03/15/22 (possible TIA % 50 occlusion of left [employer]) Dorian Avila DO [Primary Care Provider] - Diet: Carb Consistent or DM2 Diet Comment: Avoid pork beef Ramsey roasted food Addtl Attending Provider Instructions: You are in early stage of diabetes and your hemoglobin A1c is 6.5 you are starting a new medication called Jardiance to help you to lose weight Your blood pressure is not controlled new medication was added to current blood pressure medication list The dose of your atorvastatin has increased from 40 to 80 mg given your cholesterol is on the high side Your triglyceride is high you should lose weight exercise on a regular basis, avoid pork Ramsey beef roasted meals You have a thyroid nodule please follow-up with your primary care doctor for referral for nodule biopsy Your TSH is elevated please repeat your TSH in 2 weeks Please follow-up with neurologist for numbness right hand you may suffer from carpal tunnel syndrome you may need nerve conduction velocity, Please stop smoking Pending Studies at Discharge: Yes Studies:: Lipid profile in 1 months Thyroid nodule fine-needle biopsy Stand-Alone Forms: My [facility], Smoking Cessation Medications and DC Order Prescriptions: New atorvastatin 40 mg Tablet 40 mg PO QAM Qty: 90 RF: 2 aspirin 81 mg Tablet,Delayed Release (Dr/Ec) 81 mg PO DAILY Qty: 90 RF: 0 Jardiance 10 mg tablet 10 mg PO DAILY Qty: 90 RF: 0 amlodipine [Norvasc] 10 mg tablet 10 mg PO DAILY Qty: 90 RF: 0 nicotine [Nicoderm CQ] 21 mg/24 hr patch 24 hour 1 patch transdermal DAILY Qty: 98 RF: 0 Continued omeprazole magnesium [Prilosec OTC] 20 mg Tablet,Delayed Release (Dr/Ec) 20 mg PO DAILY RF: 0 multivitamin Tablet 1 tab PO DAILY RF: 0 ibuprofen [Advil] 200 mg Tablet 400 mg PO Q6H PRN (Reason: Pain) RF: 0 Discharge Orders: Discharge Order (Routine); Ordered 03/04/22 Ordered By: Sergio Johnson Admission Data Admit Date/Time: 03/04/22 00:18 Attending Provider: Sergio Johnson Admit Provider: Emili Garces Primary Care Provider: Dorian Avila Other Providers: Emili Garces Other Interventions: Discharge Summary Assessment (RN) Last Done: 03/04/22 14:21 Coding Level of Care Code D/C DAY MANAGEMENT >30 MINS Diagnoses Numbness and tingling in right hand R20.0; R20.2 Numbness of tongue R20.0 Hypertension I10 Thyroid nodule E04.1 Tobacco use disorder F17.200 Prediabetes R73.03
== END 2022-03-04 14:41 | disposition home or self-care (01) ==
LOC: 2N 21:33 → ED 21:33 → SUATTDRO 03-04 00:18 → 2N 03-04 01:14